=== PATIENT | male | born 1950 | race Caucasian/White ===

== ENCOUNTER 2018-03-24 10:16 | Inpatient (IN) ==
[2018-03-24 13:54] LABS: Baso % (Auto) 0.7 % (0.0-2.0); Eos % (Auto) 0.5 % (0.0-4.0); Hematocrit 43.9 % (39.0-51.0); Hemoglobin 14.9 gm/dL (13.0-17.0); Lymph # (Auto) 0.8 th/mm3 (1.0-4.8); Lymph % (Auto) 10.6 % (9.0-44.0); Mean Corpuscular HGB Conc 33.9 % (32.0-36.0); Mean Corpuscular Hemoglobin 31.4 pg (27.0-34.0); Mean Corpuscular Volume 92.7 fL (80.0-100.0); Mean Platelet Volume 8.2 fL (7.0-11.0); Mono # (Auto) 0.5 th/mm3 (0.0-0.9); Mono % (Auto) 7.3 % (0.0-8.0); Neut # (Auto) 5.7 th/mm3 (1.8-7.7); Neut % (Auto) 80.9 % (16.0-70.0); Platelet Count 141 th/mm3 (150-450); Red Blood Count 4.73 mil/mm3 (4.50-5.90); Red Cell Distribution Width 13.1 % (11.6-17.2); White Blood Count 7.1 th/mm3 (4.0-11.0)
--- NOTE | 2018-03-24 13:56 | ED ---
HPI General Chief complaint: Chest Pain Stated complaint: Cardiac Time Seen by Provider: 03/24/18 13:08 History of Present Illness HPI narrative: Patient is a 67-year-old male presents emergency department for evaluation of dizziness shortness of breath and chest discomfort. Patient states it started earlier this morning and felt a fog fall over his head like he was "going under anesthesia". He states he also noted some shortness of breath. Family states he looked pale when he sat up. He then stated that he was having some chest discomfort and left side of his chest rating down his left arm. He states currently he is feeling a little bit better. Did receive aspirin nitroglycerin prior to arrival. Symptoms mild, associated signs symptoms context and duration as above. Related Data Home Medications Medication Instructions Recorded Confirmed diclofenac sodium 100 mg PO DAILY 03/24/18 03/24/18 Allergies Allergy/AdvReac Type Severity Reaction Status Date / Time No Known Allergies Allergy Verified 03/24/18 13:24 Review of Systems ROS: all other systems reviewed are negative PMFSH Social History Social History Substance History: No History of Abuse Second Hand Smoke Exposure: No Smoking Status: Never smoker How Often Do You Have a Drink Containing Alcohol: Never Recent Travel in [facility] within the Last 8 Weeks: No Recent Out of Country Travel within the Last 8 Weeks: No Immunization History Tetanus Immunization: <5 Years Exam Narrative Exam Narrative: GENERAL: Well-developed well-nourished, no obvious distress, quite pleasant. SKIN: Focused skin assessment warm/dry. HEAD: Atraumatic. Normocephalic. EYES: Pupils equal and round. No scleral icterus. No injection or drainage. ENT: No nasal bleeding or discharge. Mucous membranes pink and moist. NECK: Trachea midline. No JVD. CARDIOVASCULAR: Regular rate and rhythm. No murmur appreciated. 2+ bilateral equal pulses in all 4 extremities per RESPIRATORY: No accessory muscle use. Clear to auscultation. Breath sounds equal bilaterally. GASTROINTESTINAL: Abdomen soft, non-tender, nondistended. Hepatic and splenic margins not palpable. MUSCULOSKELETAL: No obvious deformities. No clubbing. No cyanosis. Patient has a fair amount of edema of the right lower extremity, small bruise. Homans sign is actually negative. There is also some minimal mild swelling of the left side. Certainly greater on the right than the left. NEUROLOGICAL: Awake and alert. No obvious cranial nerve deficits. Motor grossly within normal limits. Normal speech. PSYCHIATRIC: Appropriate mood and affect; insight and judgment normal. Course Initial Documented Vital Signs Temperature 98.0 F 03/24/18 10:23 Pulse Rate 80 03/24/18 10:23 Respiratory Rate 16 03/24/18 10:23 Blood Pressure 101/63 03/24/18 10:23 Pulse Oximetry 95 03/24/18 10:23 Last Documented Vital Signs Temperature 98.0 F 03/24/18 10:23 Pulse Rate 81 03/24/18 18:49 Respiratory Rate 24 03/24/18 18:49 Blood Pressure 134/84 03/24/18 18:51 Pulse Oximetry 96 03/24/18 18:49 Critical Care Time Critical Care Time: Yes Total Critical Care Time: 65 Attestation: Aggregate critical care time was 65 minutes. Time to perform other separately billable procedures was not included in the critical care time. My time did not include minutes spent treating any other patients simultaneously or on activities that did not directly contribute to the patient's treatment. The services I provided to this patient were to treat and/or prevent clinically significant deterioration that could result in: , disability, organ failure I provided critical care services requiring my management, as noted below: Chart data review, documentation time, medication orders and management, vital sign assessments/reviewing monitor data, ordering and reviewing lab tests, ordering and interpreting/reviewing x-rays and diagnostic studies, care of the patient and discussion of the patient with the admitting physicians. Medical Decision Making MDM Narrative Medical decision making narrative: Patient 67-year-old male I have a high clinical suspicion for pulmonary embolism and DVT in this patient, testing has confirmed, he does have some evidence for right heart strain is indicated by his troponin mildly elevated. A stat echo has been ordered and is not yet read. Patient appears comfortable is saturating well on room air. Working in conjunction with Dr. Janny Escalante ICU, Dr. Levi Ramos interventional radiology, Dr. Al Smith diagnostic radiology think the safest intervention at this point would be for central line catheterization and probable TPA localized drip. I think that this is the most reasonable intervention for this patient at this time as I think he has a higher mortality with heparin alone and I think his best likelihood for recovery is with TPA. Dr. Janny Escalante is in agreement. She is at the bedside interviewing the patient to see if there is any exclusion criteria. This was discussed with Dr. Ramos who is preparing the intervenitonal radiology suite. Medical Screen Exam Complete: Yes Emergency Medical Condition: Yes Lab Data Result diagrams: 03/24/18 13:35 03/24/18 13:35 Lab Results 03/24/18 03/24/18 03/24/18 Range/Units 13:35 13:35 13:35 WBC 7.1 (4.0-11.0) th/mm3 RBC 4.73 (4.50-5.90) mil/mm3 Hgb 14.9 (13.0-17.0) gm/dL Hct 43.9 (39.0-51.0) % MCV 92.7 (80.0-100.0) fL MCH 31.4 (27.0-34.0) pg MCHC 33.9 (32.0-36.0) % RDW 13.1 (11.6-17.2) % Plt Count 141 L (150-450) th/mm3 MPV 8.2 (7.0-11.0) fL Neut % (Auto) 80.9 H (16.0-70.0) % Lymph % (Auto) 10.6 (9.0-44.0) % Finney % (Auto) 7.3 (0.0-8.0) % Eos % (Auto) 0.5 (0.0-4.0) % Baso % (Auto) 0.7 (0.0-2.0) % Neut # (Auto) 5.7 (1.8-7.7) th/mm3 Lymph # (Auto) 0.8 L (1.0-4.8) th/mm3 Finney # (Auto) 0.5 (0.0-0.9) th/mm3 Eos # (Auto) 0.0 (0.0-0.4) th/mm3 Baso # (Auto) 0.0 (0.0-0.2) th/mm3 WBC Differential . Differential Comment Auto diff final PT 11.0 (9.8-11.6) sec INR 1.1 Ratio APTT 29.5 (23.4-31.7) sec Sodium 141 (136-145) meq/L Potassium 4.1 (3.5-5.1) meq/L Chloride 106 (98-107) meq/L Carbon Dioxide 26.4 (21.0-32.0) meq/L Anion Gap 9 (5-15) meq/L BUN 18 (7-18) mg/dL Creatinine 1.23 (0.60-1.30) mg/dL Estimated GFR 59 L (>89) mL/min Random Glucose 101 (74-106) mg/dL Calcium 8.5 (8.5-10.1) mg/dL Total Bilirubin 0.8 (0.2-1.0) mg/dL AST 19 (15-37) U/L ALT 26 (12-78) U/L Alkaline Phosphatase 60 (45-117) U/L Troponin I 0.28 H (0.02-0.05) ng/mL B-Natriuretic Peptide (0-100) pg/mL Total Protein 7.8 (6.4-8.2) g/dL Albumin 3.7 (3.4-5.0) g/dL Blood Type Antibody Screen 03/24/18 03/24/18 Range/Units 13:35 16:40 WBC (4.0-11.0) th/mm3 RBC (4.50-5.90) mil/mm3 Hgb (13.0-17.0) gm/dL Hct (39.0-51.0) % MCV (80.0-100.0) fL MCH (27.0-34.0) pg MCHC (32.0-36.0) % RDW (11.6-17.2) % Plt Count (150-450) th/mm3 MPV (7.0-11.0) fL Neut % (Auto) (16.0-70.0) % Lymph % (Auto) (9.0-44.0) % Finney % (Auto) (0.0-8.0) % Eos % (Auto) (0.0-4.0) % Baso % (Auto) (0.0-2.0) % Neut # (Auto) (1.8-7.7) th/mm3 Lymph # (Auto) (1.0-4.8) th/mm3 Finney # (Auto) (0.0-0.9) th/mm3 Eos # (Auto) (0.0-0.4) th/mm3 Baso # (Auto) (0.0-0.2) th/mm3 WBC Differential Differential Comment PT (9.8-11.6) sec INR Ratio APTT (23.4-31.7) sec Sodium (136-145) meq/L Potassium (3.5-5.1) meq/L Chloride (98-107) meq/L Carbon Dioxide (21.0-32.0) meq/L Anion Gap (5-15) meq/L BUN (7-18) mg/dL Creatinine (0.60-1.30) mg/dL Estimated GFR (>89) mL/min Random Glucose (74-106) mg/dL Calcium (8.5-10.1) mg/dL Total Bilirubin (0.2-1.0) mg/dL AST (15-37) U/L ALT (12-78) U/L Alkaline Phosphatase (45-117) U/L Troponin I (0.02-0.05) ng/mL B-Natriuretic Peptide 26 (0-100) pg/mL Total Protein (6.4-8.2) g/dL Albumin (3.4-5.0) g/dL Blood Type AB Negative Antibody Screen Negative Imaging Data Radiologist's impression: Chest CTA 03/24/18 13:24 CONCLUSION: 1. Large embolus occluding left main pulmonary vein. Findings were discussed with Dr. Edgar today's date. Chest X-Ray 03/24/18 13:24 CONCLUSION: Mild compensated cardiomegaly without infiltrate or failure. Venous Doppler Study 03/24/18 13:24 CONCLUSION: 1. Deep venous thrombosis extending across the knee to mid thigh. Discharge Plan Discharge Disposition Patient Disposition: ED Admit(ED Internal Use Only) Discharge Order Discharge Orders: ED Use Only Admit Order (Routine); Ordered 03/24/18 Ordered By: Zackery Montanez Physicians Team ED Provider: Zackery Montanez Primary Care Provider: UNKNOWN, Attending Provider: Janny Escalante Other Providers: Kelsey Alfredo Status ED Status: Left Department Discharge Information Discharge Date/Time: 03/24/18 17:50
[2018-03-24 14:08] LABS: Activated Partial Thrombo Time 29.5 sec (23.4-31.7); INR 1.1 Ratio
[2018-03-24 14:14] LABS: Alanine Aminotransferase 26 U/L (12-78); Albumin 3.7 g/dL (3.4-5.0); Anion Gap 9 meq/L (5-15); Aspartate Aminotransferase 19 U/L (15-37); Blood Urea Nitrogen 18 mg/dL (7-18); Calcium 8.5 mg/dL (8.5-10.1); Carbon Dioxide 26.4 meq/L (21.0-32.0); Chloride 106 meq/L (98-107); Glomerular Filtration Rate 59 mL/min (>89); Glucose,Random 101 mg/dL (74-106); Potassium 4.1 meq/L (3.5-5.1); Sodium 141 meq/L (136-145)
[2018-03-24 14:18] LABS: Alkaline Phosphatase 60 U/L (45-117); Total Protein 7.8 g/dL (6.4-8.2); Troponin I 0.28 ng/mL (0.02-0.05)
[2018-03-24] MEDS ORDERED: Heparin 10,000 UNITS/10 ML Vial (for IV use) IV.PUSH STA (14:21)
[2018-03-24] MEDS ORDERED: Heparin Drip 25,000 UNIT/250 ML BAG IV.CONT PRN (14:21)
--- NOTE | 2018-03-24 14:33 | XR ---
EXAM DATE: 03/24/2018 2:00 PM EST AGE/SEX: 67 years / Male INDICATIONS: Chest pain. CLINICAL DATA: This is the patient's initial encounter. Patient reports that signs and symptoms have been present for 1 day and indicates a pain score of 10/10. MEDICAL/SURGICAL HISTORY: None. None. COMPARISON: No prior exams available for comparison. FINDINGS: A single AP view of the chest demonstrates the lungs to be symmetrically aerated without evidence of mass, infiltrate or effusion. Mild cardiomegaly. Osseous structures are intact. CONCLUSION: Mild compensated cardiomegaly without infiltrate or failure. Electronically signed by: Eliecer Smith MD Board Certified Radiologist 03/24/2018 2:32 PM EST
--- NOTE | 2018-03-24 14:41 | US ---
EXAM DATE: 03/24/2018 2:26 PM EST AGE/SEX: 67 years / Male INDICATIONS: Right leg swelling. CLINICAL DATA: This is the patient's initial encounter. Patient reports that signs and symptoms have been present for 4 - 6 days and indicates a pain score of 0/10. MEDICAL/SURGICAL HISTORY: Diabetes. Hepatitis C. Congestive heart failure. Hypertension. Pa cemburt. Gastric bypass. COMPARISON: No prior exams available for comparison. TECHNIQUE: Venous ultrasound of both lower extremities was performed from the inguinal ligament to t he proximal calf. Real-time, color Doppler and spectral tracing, compression and augmentation techni ques were used. FINDINGS: There is occlusive and partially occlusive thrombus extending from just below the poplit eal vein through the popliteal vein into the common femoral vein. Clot stops in mid thigh CONCLUSION: 1. Deep venous thrombosis extending across the knee to mid thigh. Electronically signed by: Eliecer Smith MD Board Certified Radiologist 03/24/2018 2:40 PM EST
--- NOTE | 2018-03-24 16:03 | CT ---
EXAM DATE: 03/24/2018 3:53 PM EST AGE/SEX: 67 years / Male INDICATIONS: Dizziness, shortness of breath and chest discomfort since this morning. CLINICAL DATA: This is the patient's initial encounter. Patient reports that signs and symptoms have been present for 1 day and indicates a pain score of 2/10. MEDICAL/SURGICAL HISTORY: Congestive heart failure. Diabetes. Hypertension. Hep C. Pacemaker. Gastric bypass. RADIATION DOSE: 19.69 CTDI (mGy) COMPARISON: No prior exams available for comparison. TECHNIQUE: Volumetric scanning was performed using a multi-row detector CT scanner during bolus infu saúl of 73 ml Omnipaque 350 (iohexol) nonionic water-soluble contrast as a single exam dose. The eddie a was post processed with a variety of visualization algorithms including full volume maximum intensi ty projection and sliding thin slab reformation. Using automated exposure control and adjustment of t he mA and/or kV according to patient size, radiation dose was kept as low as reasonably achievable to obtain optimal diagnostic quality images. DICOM format image data is available electronically for r eview and comparison. FINDINGS: Pulmonary Arteries: There is a large embolus occluding the left main pulmonary vein. Smaller emboli are present on the right. Lungs are clear without pleural effusion There is no axillary or mediastinal adenopathy. Abdominal contents unremarkable. CONCLUSION: 1. Large embolus occluding left main pulmonary vein. Findings were discussed with Dr. Edgar today's date. Electronically signed by: Eliecer Smith MD Board Certified Radiologist 03/24/2018 4:01 PM EST
--- NOTE | 2018-03-24 16:48 | ECHRPT ---
Indication: CONCLUSIONS Normal left ventricular size. Wall thickness is normal. The left ventricular systolic function is normal with an estimated ejection fraction in the range of 55-60%. The right ventricle is mildly dilated. The right ventricular systoilc function is mildly decreased. Trace aortic valve regurgitation. There is trace tricuspid valve regurgitation. The estimated pulmonary arterial pressure is 19 mmHg. The inferior vena cava was not well visualized. BP: / HR: Rhythm: Sinus MEASUREMENTS (Male / Female) Normal Values Technical Quality:Fair 2D ECHO LV Diastolic Diameter PLAX 3.9 cm 4.2 - 5.9 / 3.9 - 5.3 cm LV Systolic Diameter PLAX 3.0 cm IVS Diastolic Thickness 1.1 cm 0.6 - 1.0 / 0.6 - 0.9 cm LVPW Diastolic Thickness 1.0 cm 0.6 - 1.0 / 0.6 - 0.9 cm LV Relative Wall Thickness 0.5 RV Internal Dim ED PLAX 3.9 cm LVOT Diameter 1.8 cm Aortic Root Diameter 3.3 cm LA Systolic Diameter LX 3.1 cm 3.0 - 4.0 / 2.7 - 3.8 cm M-MODE AV Cusp Separation MM 2.1 cm DOPPLER AV Peak Velocity 165.0 cm/s AV Peak Gradient 10.9 mmHg AV Mean Gradient 6.0 mmHg AV Velocity Time Integral 34.2 cm LVOT Peak Velocity 108.0 cm/s LVOT Peak Gradient 4.7 mmHg LVOT Velocity Time Integral 19.7 cm AV Area Cont Eq vti 1.5 cm AV Area Cont Eq pk 1.7 cm Mitral E Point Velocity 73.5 cm/s Mitral A Point Velocity 114.0 cm/s Mitral E to A Ratio 0.6 LV E' Lateral Velocity 11.8 cm/s Mitral E to LV E' Lateral Ratio 6.2 LV E' Septal Velocity 6.9 cm/s Mitral E to LV E' Septal Ratio 10.6 TR Peak Velocity 153.0 cm/s TR Peak Gradient 9.4 mmHg Right Atrial Pressure 10.0 mmHg Pulmonary Artery Systolic Pressu 19.4 mmHg Right Ventricular Systolic Press 19.4 mmHg PV Peak Velocity 143.0 cm/s PV Peak Gradient 8.2 mmHg FINDINGS LEFT VENTRICLE Normal left ventricular size. Wall thickness is normal. The left ventricular systolic function is normal with an estimated ejection fraction in the range of 55-60%. RIGHT VENTRICLE The right ventricle is mildly dilated. The right ventricular systoilc function is mildly decreased. LEFT ATRIUM The left atrial size is normal. RIGHT ATRIUM The right atrial size is normal. ATRIAL SEPTUM Normal atrial septal thickness without atrial level shunting by limited color doppler interrogation. AORTA The aortic root and proximal ascending aorta are normal in size on limited imaging. MITRAL VALVE Structurally normal mitral valve. No mitral valve stenosis or regurgitation. AORTIC VALVE Trace aortic valve regurgitation. TRICUSPID VALVE There is trace tricuspid valve regurgitation. The estimated pulmonary arterial pressure is 19 mmHg. PULMONARY VALVE No pulmonary valve regurgitation or stenosis. VESSELS The inferior vena cava was not well visualized. PERICARDIUM No pericardial effusion. Jose Mcdowell MD (Electronically Signed) Final Date:24 March 2018 16:47
[2018-03-24] MEDS ORDERED: Potassium Phosphate 500 MG Soluble Tablet PO PRN ×2 (16:53)
[2018-03-24] MEDS ORDERED: Bisacodyl 10 MG Supp RECTAL PRN (16:53)
[2018-03-24] MEDS ORDERED: Magnesium Sulfate Inj 2 GM in Sodium Chlor 0.9% Inj 96 ML IV.SIG PRN (16:53)
[2018-03-24] MEDS ORDERED: Sodium Phosphate Inj 30 MMOL in Sodium Chlor 0.9% Inj 250 ML IV.SIG PRN (16:53)
[2018-03-24] MEDS ORDERED: Potassium Chloride Liq 20 MEQ/15 ML UDC PO PRN ×2 (16:53)
[2018-03-24] MEDS ORDERED: Acetaminophen 325 MG Tablet PO PRN (16:53)
[2018-03-24] MEDS ORDERED: Potassium Chlor 20 mEq Premix 20 MEQ/100 ML PIGGYBACK IV.SIG PRN ×2 (16:53)
[2018-03-24] MEDS ORDERED: Potassium Chlor 40 mEq Premix 40 MEQ/100 ML PIGGYBACK IV.SIG PRN ×2 (16:53)
[2018-03-24] MEDS ORDERED: Potassium Phosphate Inj 30 MMOL in Sodium Chlor 0.9% Inj 250 ML IV.SIG PRN (16:53)
[2018-03-24] MEDS ORDERED: Magnesium Sulfate Inj 4 GM in Sodium Chlor 0.9% Inj 92 ML IV.SIG PRN (16:53)
[2018-03-24] MEDS ORDERED: Magnesium Oxide 400 MG Tablet PO PRN (16:53)
[2018-03-24] MEDS ORDERED: fentaNYL Citrate Inj 250 MCG/5 ML Ampul ONE (17:20)
--- NOTE | 2018-03-24 17:36 | P.HPCC ---
History of Present Illness Service: ICU Primary Care Physician: UNKNOWN Chief Complaint: Shortness of breath History of Present Illness: This is a 67-year-old male that presented to [facility] with complaints of shortness of breath and chest pain on inspiration. The patient also noted that his right leg have been swollen and had been achy in the recent past. The patient stated that he had been traveling and had taken a flight on March 08 from [place] to [place] and he started having pain in his right leg . On March 21, the patient then stated that he drove from [place] to [place] for approximately 8 hours. Day he woke up and has shortness of breath and continued pain in his right. CT angios was performed and it revealed a large embolus in the left pulmonary vein and small emboli in the right a stat venous Doppler ultrasound showed a DVT extending across the knee to the mid thigh in the right leg. She is past medical history is significant for hypertension ,diabetes, and hepatitis C. The patient also has a hearing deficit. Emergency physician Dr. Montanez contacted Dr. Ramos Invasive Radiology who reviewed the case and discussed the possibility of doing catheter directed TPA. The patient was placed on heparin 1800 units/hour. Patient was noted to have a slight elevation in troponin at 0.28. Stat ECHO was obtained and pending. Critical Care medicine was then consulted. Upon my arrival , the patient was hemodynamically stable on 2 L/min nasal cannula O2 saturation 99%. The patient denied any chest pain and had a normal blood pressure. Stat echo was obtained and is still pending. Review of exclusion criteria was discussed with the patient, of which he denied. The patient met inclusion criteria for TPA. I discussed with the patient options of thrombolysis to include catheter directed by invasive radiology, IV infusion of TPA as well as continued heparin infusion. Discussion with Dr. Montanez and patient decision made to undergo catheter directed thrombolysis. All questions were answered. Risks and benefits for catheter directed TPA thrombolysis to be discussed per Dr. Ramos with patient and family. - Diagnosis (1) Pulmonary embolus Inpatient Certification: I certify that the inpatient services were ordered in accordance with Medicare regulations governing the order. This includes certification that hospital inpatient services are reasonable and necessary and in the case of services not specified as inpatient-only under 42 CFR 419.22(n), that they are appropriately provided as inpatient services in accordance to with the 2-midnight benchmark under 43 CFR 412.3(e) Estimated Total Length of Stay (Days): 5 Plans for Post Hospital Care: Not yet determined Review of Systems All other systems reviewed negative except as stated in HPI Musculoskeletal: Reports other (Right leg pain) PMF - History History Provided By: Patient, Institutional Cook / EMT - Medical History Medical History: Medical History (Last Updated 03/25/18 @ 13:43 by Janny Escalante MD) Patient denies medical problems (Acute) - Surgical History Surgical History: Surgical History (Last Reviewed 03/24/18 @ 17:23 by Janny Escalante MD) H/O gastric bypass - Tobacco History Second Hand Smoke Exposure: No Smoking Status: Never smoker - Alcohol History How Often Do You Have a Drink Containing Alcohol: Never - Substance Use History Substance History: No History of Abuse - Travel History Recent Travel in the [place] Within the Last 8 Weeks: No Recent Travel Out of the Country Within the Last 8 Weeks: No - Immunization History Tetanus Immunization: <5 Years Medications and Allergies Active Medications: Active Medications Acetaminophen (Tylenol) 650 mg PO Q6H PRN PRN Reason: PAIN 1-10 AND/OR FEVER >101F Hydrocodone Bitart/Acetaminophen ([place] 5/325) 1 tab PO Q4H PRN PRN Reason: PAIN SCALE 1 TO 5 Al Hydroxide/Mg Hydroxide (Milk Of Magnesia Liq) 30 ml PO Q12H PRN PRN Reason: Mild Constipation Albuterol (Duoneb Neb (Prn)) 1 ampul NEB Q2HR NEB PRN PRN Reason: WHEEZING Albuterol (Duoneb Neb (Prn)) 1 ampul NEB Q6HR NEB ABBIE Bisacodyl (Dulcolax Supp) 10 mg RECTAL DAILY PRN PRN Reason: SEVERE CONSITIPATION Chlorhexidine Gluconate (Chlorhexidine 2% Cloth) 3 pack TOPICAL DAILY@0400 ABBIE Stop: 03/30/18 03:59 Chlorhexidine Gluconate (Chlorhexidine 2% Cloth) 3 pack TOPICAL DAILY@0400 PRN PRN Reason: Extra cloth needed Stop: 03/30/18 03:59 Famotidine (Pepcid Pf Inj) 20 mg IV.PUSH Q12HR ABBIE Heparin Sodium (Porcine) (Heparin Inj) 2,500 units IV.PUSH UNSCH PRN PRN Reason: aPTT 25-39 Heparin Sodium (Porcine) (Heparin Inj) 5,000 units IV.PUSH UNSCH PRN PRN Reason: aPTT < 25 Heparin Sodium/Dextrose (Heparin/D5w 25,000 U/250 Ml) 25,000 unit in 250 mls @ 0 mls/hr IV.CONT TITRATE PRN; Protocol PRN Reason: Per Protocol Last Admin: 03/24/18 15:22 Dose: 1,800 units/hr, 18 mls/hr Magnesium Sulfate 4 gm/ Sodium (Chloride) 100 mls @ 50 mls/hr IV.SIG UNSCH PRN PRN Reason: For Magnesium 0.9 - 1.1 mg/dL Magnesium Sulfate 2 gm/ Sodium (Chloride) 100 mls @ 50 mls/hr IV.SIG UNSCH PRN PRN Reason: For Magnesium 1.2 - 1.6 mg/dL Potassium Chloride (Kcl 40 Meq Premix Inj) 40 meq in 100 mls @ 25 mls/hr IV.SIG Q2H PRN PRN Reason: For Potassium 2.8 - 3.2 mEq/L Potassium Chloride (Kcl 20 Meq Premix Inj) 20 meq in 100 mls @ 50 mls/hr IV.SIG Q2H PRN PRN Reason: For Potassium 3.3 - 3.5 mEq/L Potassium Chloride (Kcl 40 Meq Premix Inj) 40 meq in 100 mls @ 25 mls/hr IV.SIG UNSCH PRN PRN Reason: For Potassium 3.3 - 3.5 mEq/L Potassium Chloride (Kcl 20 Meq Premix Inj) 20 meq in 100 mls @ 50 mls/hr IV.SIG Q2H PRN PRN Reason: For Potassium 2.8 - 3.2 mEq/L Sodium Phosphate 30 mmol/ (Sodium Chloride) 260 mls @ 42 mls/hr IV.SIG UNSCH PRN PRN Reason: For Phosphorus < 2.5 mg/dL Potassium Phosphate 30 mmol/ (Sodium Chloride) 260 mls @ 42 mls/hr IV.SIG UNSCH PRN PRN Reason: SEE LABEL COMMENTS Lactulose (Lactulose Liq) 30 ml PO DAILY PRN PRN Reason: SEVERE CONSITIPATION Magnesium Oxide (Mag-Ox) 800 mg PO UNSCH PRN PRN Reason: For Magnesium 1.2 - 1.6 mg/dL Ondansetron HCl (Zofran Inj) 4 mg IV.PUSH Q6H PRN PRN Reason: NAUSEA OR VOMITING Potassium Chloride (Kcl Liq) 40 meq PO UNSCH PRN PRN Reason: Potassium level 3.3-3.5 mEq/L Potassium Chloride (Kcl Liq) 40 meq PO UNSCH PRN PRN Reason: POTASSIUM LESS THAN 3.5 Potassium Phosphate (K-Phos Original) 2,000 mg PO Q4H PRN PRN Reason: Phosphorus Less Than 2.5 mg/dL Potassium Phosphate (K-Phos Original) 2,000 mg PO UNSCH PRN PRN Reason: SEE LABEL COMMENTS Senna/Docusate Sodium (Susan-Colace) 1 tab PO BID ABBIE Sennosides (Senokot) 17.2 mg PO Q12H PRN PRN Reason: Moderate Constipation Sodium Chloride (Ns Flush) 2 ml IV.FLUSH UNSCH PRN PRN Reason: FLUSH AFTER USING IV ACCESS Sodium Chloride (Ns Flush) 2 ml IV.FLUSH BID ABBIE Sodium Chloride (Ns Flush) 2 ml IV.FLUSH PRN PRN PRN Reason: FLUSH AFTER USING IV ACCESS Allergies Allergy/AdvReac Type Severity Reaction Status Date / Time No Known Allergies Allergy Verified 03/24/18 13:24 Home Medications Medication Instructions Recorded Confirmed Type diclofenac sodium 100 mg PO DAILY 03/24/18 03/24/18 History Results - Labs CBC & Chem 7: 03/25/18 11:00 03/25/18 05:00 Labs: Short CBC 03/24/18 Range/Units 13:35 WBC 7.1 (4.0-11.0) th/mm3 Hgb 14.9 (13.0-17.0) gm/dL Hct 43.9 (39.0-51.0) % Plt Count 141 L (150-450) th/mm3 [facility] 03/24/18 13:35 Sodium 141 Potassium 4.1 Chloride 106 Carbon Dioxide 26.4 BUN 18 Creatinine 1.23 Calcium 8.5 Cardiac Enzymes 03/24/18 Range/Units 13:35 Troponin I 0.28 H (0.02-0.05) ng/mL Liver Function 03/24/18 Range/Units 13:35 Total Bilirubin 0.8 (0.2-1.0) mg/dL AST 19 (15-37) U/L ALT 26 (12-78) U/L Alkaline Phosphatase 60 (45-117) U/L Albumin 3.7 (3.4-5.0) g/dL - Imaging Impressions Chest CTA 03/24/18 13:24 CONCLUSION: 1. Large embolus occluding left main pulmonary vein. Findings were discussed with Dr. Edgar today's date. Chest X-Ray 03/24/18 13:24 CONCLUSION: Mild compensated cardiomegaly without infiltrate or failure. Venous Doppler Study 03/24/18 13:24 CONCLUSION: 1. Deep venous thrombosis extending across the knee to mid thigh. Exam Vital signs: Vital Signs 03/24/18 10:23 03/24/18 13:27 03/24/18 16:47 Temperature 98.0 F Pulse Rate 80 70 87 Respiratory Rate 16 18 18 Blood Pressure 101/63 150/91 H 130/76 Pulse Oximetry 95 95 95 Intake & Output 03/23/18 03/24/18 03/24/18 18:59 06:59 18:59 Weight 98.43 kg - Constitutional mild distress, obese - Routine HEENT Exam Head: Present: normocephalic, atraumatic Eye: Present: EOMI, PERRL, normal accommodation, conjunctivae pink ENT: Present: mucous membranes moist, oropharynx clear, dentition normal, nares patent, external ear normal - Routine Neck Exam Present: supple, full ROM, trachea midline - Routine Respiratory Exam Present: CTA bilaterally - Routine Cardiovascular Exam Present: RRR, S1, S2 - Routine Abdominal Exam Present: soft, normoactive bowel sounds - Routine Extremities Exam Present: full ROM - Routine Skin Exam Present: intact - Routine Neurological Exam Present: alert, oriented X3, CN II-XII intact, sensory deficit (decreased hearing), normal reflexes, normal tone, vision grossly intact, hearing grossly intact Caprini VTE Risk Assessment Caprini VTE Risk Assessment: Moderate/High Risk (score >= 2) VTE Pharmacological Exception Reason: Documented Caprini Risk Assessment Model: Point Value = 1 Point Value = 2 Point Value = 3 Point Value = 5 Age 41-60 Minor surgery BMI > 25 kg/m2 Swollen legs Varicose veins or History of unexplained or recurrent spontaneous Oral contraceptives or hormone replacement Sepsis (< 1 month) Serious lung disease, including pneumonia (< 1 month) Abnormal pulmonary function Acute myocardial infarction Congestive heart failure (< 1 month) History of inflammatory bowel disease Medical patient at bed rest Age 61-74 Arthroscopic surgery Major open surgery (> 45 min) Laparoscopic surgery (> 45 min) Malignancy Confined to bed (> 72 hours) Immobilizing plaster cast Central venous access Age >= 75 History of VTE Family history of VTE Factor V Leiden Prothrombin [id number] Lupus anticoagulant Anticardiolipin antibodies Elevated serum homocysteine Heparin-induced thrombocytopenia Other congenital or acquired thrombophilia Stroke (< 1 month) Elective arthroplasty Hip, pelvis, or leg fracture Acute spinal cord injury (< 1 month) Prophylaxis Regimen: Total Risk Factor Score Risk Level Prophylaxis Regimen 0-1 Low Early ambulation 2 Moderate Order ONE of the following: *Sequential Compression Device (SCD) *Heparin 5000 units SQ BID 3-4 Higher Order ONE of the following medications: *Heparin 5000 units SQ TID *Enoxaparin/Lovenox 40 mg SQ daily (WT < 150 kg, CrCl > 30 mL/min) *Enoxaparin/Lovenox 30 mg SQ daily (WT < 150 kg, CrCl > 10-29 mL/min) *Enoxaparin/Lovenox 30 mg SQ BID (WT < 150 kg, CrCl > 30 mL/min) AND/OR *Sequential Compression Device (SCD) 5 or more Highest Order ONE of the following medications: *Heparin 5000 units SQ TID (Preferred with Epidurals) *Enoxaparin/Lovenox 40 mg SQ daily (WT < 150 kg, CrCl > 30 mL/min) *Enoxaparin/Lovenox 30 mg SQ daily (WT < 150 kg, CrCl > 10-29 mL/min) *Enoxaparin/Lovenox 30 mg SQ BID (WT < 150 kg, CrCl > 30 mL/min) AND *Sequential Compression Device (SCD) Assessment and Plan - Problem List (1) Pulmonary embolus Code(s): I26.99 - Other pulmonary embolism without acute cor pulmonale Status : Acute - Assessment and Plan Plan: Assessment This is a 67-year-old male with a large left pulmonary vein embolus, undergoing catheter directed TPA administration. Patient is at risk for cardiac and pulmonary deterioration. Admit to ICU. Plan by systems: Neurologic: Pain Hearing deficit Neuro checks per ICU protocol Acetaminophen 650 mg every 6 hours as needed for temp greater than 101 Oxycodone 5/325 for pain scale 1 through 10. Patient complaining of pleuritic chest pain on inspiration Respiratory: Maintain O2 saturation greater than 92%. Patient currently on 2 L nasal cannula O2 sat 97% Duo nebs every 6 hours scheduled every 2 hours as needed CTA Pulm-large embolus left main pulmonary vein Plan catheter directed TPA thrombolysis per invasive radiology Management of TPA per invasive radiology Consult hematology oncology Cardiovascular: Cardiomegaly Follow-up echo result Follow-up troponin, initial troponin 0 0.28 Maintain map greater than 65mmHG Renal: No Harding indicated at this time -- Strict I/Os FEN/GI: Begin regular diet Zofran for nausea Famotidine GI prophylaxis Bowel regimen Heme/ID: Consult Heme-Onc No indications for cultures at this time All lab draws to be obtained from central line no needle sticks during infusion TPA Monitor CBC Endocrine: Glucose monitoring per ICU protocol -- SSI Prophylaxis: GI Prophylaxis Famotidine DVT Prophylaxis -- SCDs Lines: Peripheral IVs x2. Central line placement and invasive radiology for TPA administration Dispo: My billing statement This patient remains critically ill with one or more organ systems which are or may become a threat to life. I have spent in excess of 45 minutes discontinuously in the care and management of this patient. This time is exclusive of procedures, and includes, but is not limited to, evaluation of the patient, review of the medical record, discussions with family, consultants, nursing staff, or respiratory therapy, and documentation in the medical record. Code Status: Full Discussed Condition With: Dr. Montanez, patient, patient's family, and BOAT DESIGNER at bedside (1) Pulmonary embolus Qualifiers: Chronicity: acute
[2018-03-24] MEDS ORDERED: Cathflo Activase Inj 2 MG Vial I-CATHETER ONE (18:03)
--- NOTE | 2018-03-24 18:16 | P.RAD ---
Post Procedure Progress Note - Pre Procedure Diagnosis (1) Pulmonary embolus - Post Procedure Diagnosis (1) Pulmonary embolus - Procedure Information Supervising Radiologist: Levi Ramos MD - Plan of Activity See PACS Report for procedural detail/treatment. Vascular - Arterial Procedure left Thoracic Procedure: Angiogram, Thrombolysis - Additional Information Findings: Massive PE on left. Traversed with wire to facilitate placement of a 10cm infusion catheter
[2018-03-24] MEDS: Senna/Docusate Sodium 8.6/50 MG Tablet PO SCH (21:06)
[2018-03-24] MEDS ORDERED: Heparin 10,000 UNITS/10 ML Vial (for IV use) IV.PUSH PRN ×2 (21:09→21:10)
[2018-03-24] MEDS ORDERED: Heparin/NS PF Inj 500 ML I-CATHETER PRN (22:24)
[2018-03-24] MEDS ORDERED: Heparin Drip 25,000 UNIT/250 ML BAG IV.CONT SCH (22:30)
[2018-03-24] MEDS: Famotidine PF Inj 20 MG/2 ML Vial IV.PUSH SCH (23:33)
[2018-03-24 23:34] LABS: Hematocrit 41.2 % (39.0-51.0); Mean Corpuscular HGB Conc 34.1 % (32.0-36.0); Mean Corpuscular Hemoglobin 30.8 pg (27.0-34.0); Mean Corpuscular Volume 90.2 fL (80.0-100.0); Mean Platelet Volume 8.4 fL (7.0-11.0); Platelet Count 128 th/mm3 (150-450); Red Blood Count 4.56 mil/mm3 (4.50-5.90); Red Cell Distribution Width 12.6 % (11.6-17.2); White Blood Count 7.7 th/mm3 (4.0-11.0)
[2018-03-24] MEDS: Cathflo Activase Inj 10 MG in Sodium Chlor 0.9% Inj 500 ML I-CATHETER PRN (23:35)
[2018-03-24] MEDS: Heparin/NS PF Inj 500 ML I-CATHETER SCH (23:37)
[2018-03-24] MEDS: Sod Chloride 0.9% Inj 1,000 ML IV.SIG SCH (23:38)
[2018-03-25] MEDS ORDERED: Chlorhexidine Gluconate 2% 1 Pack (2 Cloths) TOPICAL PRN (04:00)
[2018-03-25] MEDS: Cathflo Activase Inj 10 MG in Sodium Chlor 0.9% Inj 500 ML I-CATHETER PRN (04:31)
[2018-03-25] MEDS: Chlorhexidine Gluconate 2% 1 Pack (2 Cloths) TOPICAL SCH (04:33)
[2018-03-25 05:22] LABS: Baso % (Auto) 0.6 % (0.0-2.0); Eos # (Auto) 0.1 th/mm3 (0.0-0.4); Eos % (Auto) 1.5 % (0.0-4.0); Hematocrit 39.6 % (39.0-51.0); Hemoglobin 13.5 gm/dL (13.0-17.0); Lymph # (Auto) 1.2 th/mm3 (1.0-4.8); Mean Corpuscular HGB Conc 34.1 % (32.0-36.0); Mean Corpuscular Hemoglobin 31.4 pg (27.0-34.0); Mean Platelet Volume 8.4 fL (7.0-11.0); Mono # (Auto) 0.6 th/mm3 (0.0-0.9); Mono % (Auto) 9.2 % (0.0-8.0); Neut # (Auto) 4.3 th/mm3 (1.8-7.7); Neut % (Auto) 69.7 % (16.0-70.0); Platelet Count 116 th/mm3 (150-450); Red Cell Distribution Width 12.5 % (11.6-17.2); White Blood Count 6.2 th/mm3 (4.0-11.0)
[2018-03-25 05:38] LABS: Activated Partial Thrombo Time 48.5 sec (23.4-31.7)
[2018-03-25 05:48] LABS: Magnesium 2.1 mg/dL (1.5-2.5); Phosphorus 3.1 mg/dL (2.5-4.9); Potassium 3.8 meq/L (3.5-5.1)
[2018-03-25] MEDS: Famotidine PF Inj 20 MG/2 ML Vial IV.PUSH SCH ×2 (08:16→20:44)
[2018-03-25] MEDS: Senna/Docusate Sodium 8.6/50 MG Tablet PO SCH ×2 (08:17→20:50)
--- NOTE | 2018-03-25 09:20 | MB ---
cc: Kelsey Alfredo MD DATE: 03/25/2018 CHIEF COMPLAINT: 1. Venous thromboembolism. 2. Pulmonary embolism. 3. Requirement of catheter-directed thrombolysis. HISTORY OF PRESENT ILLNESS: The patient is a 67-year-old gentleman on no home medications, who presented to our emergency room with acute onset of shortness of breath and chest pain. He also noted bilateral lower extremity swelling, right greater than left, that has been present over the past several months. He reports recent travel, including to [place], [place], and now to this area for the races. CT angio revealed large embolus in the left pulmonary vein and small emboli in the right. He was also found to have on venous duplex ultrasound a deep venous thrombosis extending across the knee to the mid thigh in the right leg. He underwent catheter-directed thrombolysis and interventional radiology team and critical care team are following closely. PAST MEDICAL HISTORY: Congestive heart failure, diabetes, hepatitis C, hypertension. SOCIAL HISTORY: The patient denies tobacco use. He reports that he drinks 3 beers per week. FAMILY HISTORY No family history of malignancy ROS: as above in HPI all others negative. HOSPITAL MEDICATIONS: Include famotidine, heparin, lactulose, Zofran, Senna. LABORATORY STUDIES: White blood cell count 6.2, hemoglobin 13.5, platelet count is 116,000 with a normal differential. Creatinine is 1.04. Total bilirubin is 0.8. AST, ALT, and alkaline phosphatase are within normal limits. PHYSICAL EXAMINATION: VITAL SIGNS: Temperature 99.8, pulse 67, respiratory rate 16, blood pressure 107/72, pulse oximetry 98% on room air. GENERAL: Overweight man, in no distress. HEENT: Head is normocephalic, atraumatic. Eyes with no scleral icterus. NECK: Supple. CARDIOVASCULAR: Regular rate and rhythm. No murmurs. RESPIRATORY: Clear to auscultation bilaterally. ABDOMEN: Protuberant, but soft, nontender. EXTREMITIES: Bilateral lower extremity swelling, right greater than left. ASSESSMENT AND PLAN: Massive pulmonary embolism. The patient reports a several-month history of bilateral lower extremity swelling, right greater than left. The chances are very high that he had this clot prior to initiation of travel. Travel is a minor transient risk factor for venous thromboembolism and uncertain if travel provoked his clot in this setting. In the outpatient setting, the patient will need to be on at the very minimum 6 months of anticoagulation. I would be inclined to leave the patient on indefinite anticoagulation due to fear of recurrent clot, which can cause severe morbidity and even mortality. I discussed blood thinner in the outpatient setting. Discussed warfarin versus Xarelto versus Eliquis. Discussed risks, benefits, side effects of all of them. Discussed side effects to include risk of bleeding. Discussed that there is a reversal agent for the DOAC medications. However, this is not yet widely available. Once the patient is cleared for discharge and ready for oral medication would switch to apixaban 5 mg by mouth twice daily. [place]. Currently due to massive pulmonary embolus, he is following closely with the interventional radiology team and the critical care team. Inpatient hematology service will continue to follow. MD SEBASTIÁN Fuller/orlando , 08:39 AM , 08:47 AM CLARICE
[2018-03-25] MEDS ORDERED: Thrombin Topical Soln 5,000 UNIT Vial TOPICAL ONE ×2 (10:16→16:17)
[2018-03-25 11:21] LABS: Baso % (Auto) 0.7 % (0.0-2.0); Eos # (Auto) 0.1 th/mm3 (0.0-0.4); Eos % (Auto) 1.6 % (0.0-4.0); Hematocrit 39.3 % (39.0-51.0); Hemoglobin 13.3 gm/dL (13.0-17.0); Lymph % (Auto) 16.5 % (9.0-44.0); Mean Corpuscular HGB Conc 33.8 % (32.0-36.0); Mean Corpuscular Hemoglobin 31.2 pg (27.0-34.0); Mean Corpuscular Volume 92.5 fL (80.0-100.0); Mean Platelet Volume 8.3 fL (7.0-11.0); Mono # (Auto) 0.6 th/mm3 (0.0-0.9); Mono % (Auto) 9.9 % (0.0-8.0); Neut # (Auto) 4.3 th/mm3 (1.8-7.7); Neut % (Auto) 71.3 % (16.0-70.0); Platelet Count 118 th/mm3 (150-450); Red Blood Count 4.25 mil/mm3 (4.50-5.90); Red Cell Distribution Width 12.4 % (11.6-17.2); White Blood Count 6.1 th/mm3 (4.0-11.0)
--- NOTE | 2018-03-25 12:52 | ECG ---
Date Performed: 03/24/2018 Time Performed: 10:43:27 PTAGE: 67 years EKG: Sinus rhythm NORMAL ECG INTERPRETATION BASED ON A DEFAULT AGE OF 40 YEARS NO PREVIOUS TRACING DOCTOR: Jayne Smith Interpretating Date/Time 03/25/2018 12:42:28
--- NOTE | 2018-03-25 16:47 | P.PNCC ---
Subjective Subjective Remarks/Hospital Course: Hospital Course: This is a 67-year-old male that presented to [facility] with complaints of shortness of breath and chest pain on inspiration. The patient also noted that his right leg have been swollen and had been achy in the recent past. The patient stated that he had been traveling and had taken a flight on March 08 from [place] to [place] and he started having pain in his right leg . On March 21, the patient then stated that he drove from [place] to [place] for approximately 8 hours. Day he woke up and has shortness of breath and continued pain in his right. CT angios was performed and it revealed a large embolus in the left pulmonary vein and small emboli in the right a stat venous Doppler ultrasound showed a DVT extending across the knee to the mid thigh in the right leg. She is past medical history is significant for hypertension ,diabetes, and hepatitis C. The patient also has a hearing deficit. Emergency physician Dr. Montanez contacted Dr. Ramos Invasive Radiology who reviewed the case and discussed the possibility of doing catheter directed TPA. The patient was placed on heparin 1800 units/hour. Patient was noted to have a slight elevation in troponin at 0.28. Stat ECHO was obtained and pending. Critical Care medicine was then consulted. Upon my arrival , the patient was hemodynamically stable on 2 L/min nasal cannula O2 saturation 99%. The patient denied any chest pain and had a normal blood pressure. Stat echo was obtained and is still pending. Review of exclusion criteria was discussed with the patient, of which he denied. The patient met inclusion criteria for TPA. I discussed with the patient options of thrombolysis to include catheter directed by invasive radiology, IV infusion of TPA as well as continued heparin infusion. Discussion with Dr. Montanez and patient decision made to undergo catheter directed thrombolysis. All questions were answered. Risks and benefits for catheter directed TPA thrombolysis to be discussed per Dr. Ramos with patient and family. Subjective: 03/25: doing well. denies new complaints. significant oozing from sheath site- IR has evaluated and re-dressed. to IR today for repeat angio and re- evaluation. Objective Vital Signs / I&O: Vital Signs 03/24/18 16:47 03/24/18 18:49 03/24/18 18:51 Temperature Pulse Rate 87 81 Respiratory Rate 18 24 Blood Pressure 130/76 134/84 Pulse Oximetry 95 96 02/11/19 18:52 03/24/18 19:00 03/24/18 19:30 Temperature Pulse Rate 84 79 83 Respiratory Rate 19 24 17 Blood Pressure 138/85 146/93 H Pulse Oximetry 98 96 03/24/18 20:00 03/24/18 20:27 03/24/18 20:30 Temperature 37.2 C Pulse Rate 77 78 81 Respiratory Rate 21 19 23 Blood Pressure 133/80 132/84 133/73 Pulse Oximetry 98 98 97 03/24/18 20:45 03/24/18 21:00 03/24/18 21:15 Temperature Pulse Rate 77 80 80 Respiratory Rate 23 21 23 Blood Pressure 130/82 131/81 141/85 H Pulse Oximetry 97 97 97 03/24/18 21:30 03/24/18 21:45 03/24/18 22:00 Temperature Pulse Rate 79 76 75 Respiratory Rate 23 21 21 Blood Pressure 131/85 132/90 131/90 Pulse Oximetry 94 L 96 96 03/24/18 22:15 03/24/18 22:30 03/24/18 22:47 Temperature Pulse Rate 75 77 79 Respiratory Rate 20 21 15 Blood Pressure 131/91 H 128/88 125/77 Pulse Oximetry 96 96 96 03/24/18 23:00 03/24/18 23:23 03/24/18 23:30 Temperature Pulse Rate 76 93 H 78 Respiratory Rate 18 13 21 Blood Pressure 131/80 136/85 143/75 H Pulse Oximetry 98 96 97 03/24/18 23:45 03/24/18 23:46 03/25/18 00:00 Temperature 37.3 C Pulse Rate 77 74 Respiratory Rate 14 20 Blood Pressure 135/93 H 134/86 Pulse Oximetry 97 97 96 03/25/18 00:15 03/25/18 00:30 03/25/18 00:45 Temperature Pulse Rate 77 76 74 Respiratory Rate 21 22 18 Blood Pressure 137/84 139/83 135/82 Pulse Oximetry 96 94 L 95 03/25/18 01:00 03/25/18 01:15 03/25/18 01:30 Temperature Pulse Rate 74 74 78 Respiratory Rate 22 22 14 Blood Pressure 134/81 133/85 138/76 Pulse Oximetry 96 95 90 L 03/25/18 01:45 03/25/18 02:00 03/25/18 02:15 Temperature Pulse Rate 76 74 74 Respiratory Rate 24 16 22 Blood Pressure 137/81 140/85 140/85 Pulse Oximetry 96 97 98 03/25/18 02:30 03/25/18 02:45 03/25/18 03:00 Temperature Pulse Rate 72 74 72 Respiratory Rate 21 22 24 Blood Pressure 142/86 H 134/85 127/82 Pulse Oximetry 98 97 97 03/25/18 03:38 03/25/18 04:00 03/25/18 04:01 Temperature 37.7 C H Pulse Rate 71 69 Respiratory Rate 12 22 Blood Pressure 127/82 125/81 Pulse Oximetry 95 97 98 03/25/18 04:30 03/25/18 05:00 03/25/18 05:30 Temperature Pulse Rate 69 69 75 Respiratory Rate 21 23 13 Blood Pressure 114/76 131/77 119/83 Pulse Oximetry 97 97 96 03/25/18 06:00 03/25/18 07:00 03/25/18 07:57 Temperature Pulse Rate 68 67 Respiratory Rate 20 16 Blood Pressure 114/66 107/72 Pulse Oximetry 96 96 98 03/25/18 08:00 03/25/18 09:00 03/25/18 10:00 Temperature 36.9 C Pulse Rate 66 70 70 Respiratory Rate 19 22 22 Blood Pressure 122/70 137/66 125/76 Pulse Oximetry 97 99 98 03/25/18 11:00 03/25/18 12:00 03/25/18 12:30 Temperature 36.9 C Pulse Rate 70 69 70 Respiratory Rate 23 21 21 Blood Pressure 127/76 135/75 125/76 Pulse Oximetry 98 98 98 03/25/18 13:00 03/25/18 14:00 Temperature Pulse Rate 69 70 Respiratory Rate 21 19 Blood Pressure 137/86 127/80 Pulse Oximetry 99 98 Intake & Output 03/24/18 03/25/18 03/25/18 18:59 06:59 18:59 Intake Total 500 / 500 434.2 / 434.2 Output Total 830 / 830 Balance -330 / -330 434.2 / 434.2 Weight 102.1 kg 103.9 kg Intake: IV 500 / 500 434.2 / 434.2 Cathflo Activase Inj 10 MG In 500 / 500 434.2 / 434.2 NS Inj 500 ML @ Per Protocol I- CATHETER TITRATE PRN Rx#: [id number] Output: Urine 830 / 830 Other: # Voids 4 Weight On Admission 102.1 kg Result Diagrams: 03/25/18 11:00 03/25/18 05:00 Objective Remarks: GENERAL: Middle-age male, sitting up in bed. HEENT: Normocephalic. Atraumatic. Pupils equal, round, reactive, conjugate. Mucous membranes are moist NECK: Trachea is midline. There is no JVD. Right sided venous sheath in place with significant oozing, packed and a small compression dressing. CHEST: Equal chest rise. Room air. CARDIOVASCULAR: Normal rate, regular rhythm. Sinus. ABDOMEN: Soft, nontender, nondistended. No guarding. MUSCULOSKELETAL: Pulses 2+. No peripheral edema. NEUROLOGICAL: RASS 0. GCS 15. Follows commands in all 4 extremity's. No focal deficits. Assessment and Plan - Problem List (1) Pulmonary embolus Code(s): I26.99 - Other pulmonary embolism without acute cor pulmonale Status : Acute - Assessment and Plan Plan: Assessment This is a 67-year-old male with a large left pulmonary vein embolus, undergoing catheter directed TPA administration. Patient is at risk for cardiac and pulmonary deterioration. Plan by systems: Neurologic: Pain Hearing deficit Neuro checks per ICU protocol Acetaminophen 650 mg every 6 hours as needed for temp greater than 101 Oxycodone 5/325 for pain scale 1 through 10. Patient complaining of pleuritic chest pain on inspiration Respiratory: Maintain O2 saturation greater than 92%. Patient currently on 2 L nasal cannula O2 sat 97% Duo nebs every 6 hours scheduled every 2 hours as needed CTA Pulm-large embolus left main pulmonary artery Plan catheter directed TPA thrombolysis per invasive radiology Management of TPA per invasive radiology Consult hematology oncology Cardiovascular: Cardiomegaly 2D echo: Preserved EF, mild RV dysfunction, mild RV dilation Follow-up troponin, initial troponin 0 0.28 Maintain map greater than 65mmHG Renal: No Harding indicated at this time -- Strict I/Os FEN/GI: regular diet Zofran for nausea Famotidine GI prophylaxis Bowel regimen Heme/ID: Consult Heme-Onc No indications for cultures at this time All lab draws to be obtained from central line no needle sticks during infusion TPA Monitor CBC Endocrine: Glucose monitoring per ICU protocol -- SSI Prophylaxis: GI Prophylaxis Famotidine DVT Prophylaxis -- SCDs Lines: Peripheral IVs x2. Central line placement and invasive radiology for TPA administration Disposition: Keep in ICU for at least 24 hours post TPA. (1) Pulmonary embolus Qualifiers: Chronicity: acute
--- NOTE | 2018-03-25 17:20 | P.RAD ---
Post Procedure Progress Note - Pre Procedure Diagnosis (1) Pulmonary embolus - Post Procedure Diagnosis (1) Pulmonary embolus - Procedure Information Procedure Date: 03/25/18 Supervising Radiologist: Levi Ramos MD Estimated blood loss (mL): 2 Anesthesia: Local - Plan of Activity Patient to Unit: Critical Care Patient Condition: Good See PACS Report for procedural detail/treatment. Vascular - Arterial Procedure left Thoracic Procedure: Angiogram - Additional Information Findings: Extensive left pulmonary embolus has resolved. Infusion catheter and sheath removed. Vicryl stitch in right IJ venous access and regional hemostasis with thrombin and pressure dressing.
[2018-03-25] MEDS: Heparin/NS PF Inj 500 ML I-CATHETER SCH (17:30)
[2018-03-25 17:35] LABS: Baso % (Auto) 0.7 % (0.0-2.0); Eos # (Auto) 0.1 th/mm3 (0.0-0.4); Hematocrit 37.8 % (39.0-51.0); Hemoglobin 12.8 gm/dL (13.0-17.0); Lymph # (Auto) 1.2 th/mm3 (1.0-4.8); Lymph % (Auto) 19.4 % (9.0-44.0); Mean Corpuscular HGB Conc 33.8 % (32.0-36.0); Mean Corpuscular Hemoglobin 30.7 pg (27.0-34.0); Mean Corpuscular Volume 90.8 fL (80.0-100.0); Mean Platelet Volume 8.2 fL (7.0-11.0); Mono # (Auto) 0.6 th/mm3 (0.0-0.9); Neut # (Auto) 4.2 th/mm3 (1.8-7.7); Neut % (Auto) 67.9 % (16.0-70.0); Platelet Count 113 th/mm3 (150-450); Red Blood Count 4.16 mil/mm3 (4.50-5.90); Red Cell Distribution Width 12.5 % (11.6-17.2); White Blood Count 6.1 th/mm3 (4.0-11.0)
[2018-03-25] MEDS ORDERED: Heparin Drip 25,000 UNIT/250 ML BAG IV.CONT PRN (22:09)
[2018-03-26] MEDS ORDERED: Heparin 10,000 UNITS/10 ML Vial (for IV use) IV.PUSH PRN ×2 (04:09→04:11)
[2018-03-26] MEDS: Sod Chloride 0.9% Inj 1,000 ML IV.SIG SCH ×2 (06:19→23:34)
[2018-03-26] MEDS: Chlorhexidine Gluconate 2% 1 Pack (2 Cloths) TOPICAL SCH (06:20)
[2018-03-26 08:41] LABS: Hematocrit 38.9 % (39.0-51.0); Hemoglobin 13.4 gm/dL (13.0-17.0); Mean Corpuscular HGB Conc 34.3 % (32.0-36.0); Mean Corpuscular Hemoglobin 31.4 pg (27.0-34.0); Mean Corpuscular Volume 91.7 fL (80.0-100.0); Mean Platelet Volume 8.3 fL (7.0-11.0); Platelet Count 126 th/mm3 (150-450); Red Blood Count 4.25 mil/mm3 (4.50-5.90); Red Cell Distribution Width 12.8 % (11.6-17.2); White Blood Count 5.4 th/mm3 (4.0-11.0)
--- NOTE | 2018-03-26 08:49 | P.PNIM ---
Subjective Interval history: Patient denies any shortness of breath, no pain with deep inspiration. No chest pain. Complaining of right arm and forearm pain, swollen. Afebrile. After walking today with physical therapy, became dizzy and lightheaded, blood pressure in the high 80s. Physical Exam Vital signs: Vital Signs 03/25/18 09:00 03/25/18 10:00 03/25/18 11:00 Temperature Pulse Rate 70 70 70 Respiratory Rate 22 22 23 Blood Pressure 137/66 125/76 127/76 Pulse Oximetry 99 98 98 03/25/18 12:00 03/25/18 12:30 03/25/18 13:00 Temperature 98.5 F Pulse Rate 69 70 69 Respiratory Rate 21 21 21 Blood Pressure 135/75 125/76 137/86 Pulse Oximetry 98 98 99 03/25/18 14:00 03/25/18 14:30 03/25/18 15:00 Temperature Pulse Rate 70 75 72 Respiratory Rate 19 23 Blood Pressure 127/80 142/83 H Pulse Oximetry 98 98 98 03/25/18 15:30 03/25/18 16:40 03/25/18 16:43 Temperature Pulse Rate 71 72 Respiratory Rate 22 23 Blood Pressure 150/79 H 149/89 H Pulse Oximetry 98 96 98 03/25/18 17:00 03/25/18 17:09 03/25/18 17:35 Temperature Pulse Rate 70 72 75 Respiratory Rate 23 Blood Pressure 143/88 H 140/85 Pulse Oximetry 98 98 03/25/18 17:48 03/25/18 18:00 03/25/18 18:05 Temperature Pulse Rate 76 73 71 Respiratory Rate Blood Pressure 114/74 Pulse Oximetry 97 95 03/25/18 18:35 03/25/18 19:00 03/25/18 19:05 Temperature Pulse Rate 76 74 75 Respiratory Rate Blood Pressure 133/81 125/80 Pulse Oximetry 97 98 96 03/25/18 19:35 03/25/18 20:00 03/25/18 20:34 Temperature 98.7 F Pulse Rate 77 68 Respiratory Rate 22 Blood Pressure 122/62 133/80 Pulse Oximetry 97 98 97 03/25/18 21:00 03/25/18 21:01 03/25/18 22:00 Temperature Pulse Rate 72 73 74 Respiratory Rate 23 Blood Pressure 127/84 Pulse Oximetry 98 98 93 L 03/25/18 22:58 03/25/18 23:00 03/26/18 00:00 Temperature 99.2 F Pulse Rate 74 74 68 Respiratory Rate 26 H 21 16 Blood Pressure 146/82 H 141/79 H 123/74 Pulse Oximetry 95 98 93 L 03/26/18 01:00 03/26/18 02:00 03/26/18 03:00 Temperature Pulse Rate 69 68 64 Respiratory Rate 13 16 17 Blood Pressure 119/77 135/76 120/61 Pulse Oximetry 98 97 96 03/26/18 04:00 03/26/18 05:00 03/26/18 06:00 Temperature 99 F Pulse Rate 63 61 64 Respiratory Rate 13 15 23 Blood Pressure 115/69 124/81 116/72 Pulse Oximetry 95 97 97 Intake & Output 03/25/18 03/26/18 03/26/18 18:59 06:59 18:59 Intake Total 884.2 / 884.2 Output Total 500 / 500 600 / 600 Balance 384.2 / 384.2 -600 / -600 Weight 104.1 kg Intake: IV 884.2 / 884.2 Cathflo Activase Inj 10 MG In 434.2 / 434.2 NS Inj 500 ML @ Per Protocol I- CATHETER TITRATE PRN Rx#: [id number] Heparin/NS PF Inj 500 ML @ 30 450 / 450 mls/hr I-CATHETER .[id number] [facility] Rx#:[id number] Output: Urine 500 / 500 600 / 600 Other: # Bowel Movements 0 Routine HEENT Exam Comments: Not in distress, ambulating Pupils equal round reactive Trachea is midline, no JVD Regular rate and rhythm, no murmurs Clear breath sounds Abdomen soft nontender No lower extremity edema. Right upper extremity swollen, tender to palpation, no erythema Alert awake and oriented x3, no focal deficits. Results Labs CBC & Chem 7: 03/26/18 08:00 03/25/18 05:00 Assessment and Plan (1) Pulmonary embolus: Code(s): I26.99 - Other pulmonary embolism without acute cor pulmonale Status: Acute Plan This is a 67-year-old male with a large left pulmonary vein embolus, undergoing catheter directed TPA administration. Patient is at risk for cardiac and pulmonary deterioration. Pulmonary Embolus - s/p tPA, pain control with tylenol and oxycodone for pleuritic chest pain on inspiration, oxygen support, duo nebs. Hematology consulted. Will need anticoagulation for 6 months, will use apixaban 5 mg twice daily. 2D echo: Preserved EF, mild RV dysfunction, mild RV dilation, mild troponin elevation likely secondary to demand ischemia from PE. Keep heparin for now Right upper extremity swelling-rule out thrombus, keep heparin for now while awaiting ultrasound of the right upper extremity. Hypotension-could be from hypovolemia from bleeding yesterday. Keep in the ICU for now. We will give normal saline IV bolus. Check orthostatics. Discussed with nursing. DVT Prophylaxis: Heparin switched to apixaban Progress Note: Quality VTE Deep Vein Thrombosis/Pulmonary Embolism Present on Admission: Yes _ (1) Pulmonary embolus Qualifiers: Acute cor pulmonale presence: Chronicity: acute Pulmonary embolism type:
[2018-03-26] MEDS: Famotidine PF Inj 20 MG/2 ML Vial IV.PUSH SCH ×2 (09:47→20:53)
[2018-03-26] MEDS: Senna/Docusate Sodium 8.6/50 MG Tablet PO SCH ×2 (09:48→20:51)
--- NOTE | 2018-03-26 10:01 | IR ---
EXAM DATE: 03/24/2018 6:55 PM EST AGE/SEX: 67 years / Male INDICATIONS: Patient presents with bilateral pulmonary embolisms in need of intervention. CLINICAL DATA: This is the patient's initial encounter. Patient reports that signs and symptoms have been present for 1 day and indicates a pain score of 0/10. MEDICAL/SURGICAL HISTORY: None. None. COMPARISON: No prior exams available for comparison. FLUORO TIME (min): 4.4 IMAGE SERIES: 8 RADIATION DOSE: 112.8mGy CAK ACCESS SITE: Right internal jugular vein SEDATION TIME (min): 30 CONTRAST (cc): 20cc Visipaque (iodixanol) MEDICATION(S): 1mg midazolam (Versed) IV ; 50mcg fentanyl (Sublimaze) IV ; ; ; DEVICE(S): Left EV3 Infusion catheter Left Pulmonary vein [id number] ; Right ; ; ; ; ; . . PROCEDURE : 1. Ultrasound-guided puncture of the access site. 2. Conscious sedation with continuous EKG and Oximetry monitoring. 3. Angiography of the left pulmonary artery 4. TPA thrombolysis, left pulmonary artery The risks, benefits and alternatives to the procedure were explained and verbal and written consent w as obtained. The site was prepped in sterile fashion. Full sterile technique was used, including ca p, mask, sterile gloves and gown and a large sterile sheet. Hand hygiene and 2% chlorhexidine and/or betadine/alcohol prep was utilized per protocol for cutaneous antisepsis. Sterile gel and sterile p robe cover were utilized for ultrasound guidance. The skin and subcutaneous tissues were infiltrated with local anesthetic solution. With ultrasound and fluoroscopic guidance the right internal jugular vein was punctured and a 6 Frenc h vascular sheath was placed. Through the sheath, a glide wire and omni flush catheter were manipulated into the right ventricle th en out the pulmonary outflow tract. Wire was then advanced across the thrombus in the left main pulmo nary artery. Catheter was advanced down to a lower lobe branch of the pulmonary arteries. Contrast in jection confirmed extensive thrombus of the left pulmonary artery. Over an exchange Hooks wire, a 10 cm infusion catheter was positioned across the extensive thrombus and TPA infusion was instituted at 2 mg an hour. The puncture site was closed with manual pressure and hemostasis was obtained. The patient tolerated the procedure well and there were no complications. Conscious sedation was performed with the prescribed dosages and duration as above in the presence of an independent trained radiology nurse to assist in the monitoring of the patient. EKG and oximetry remained stable throughout the procedure. CONCLUSION: 1. Extensive embolus in the left pulmonary artery. Based on the patient's CTA, minimal emboli identi fied in small branch vessels of the right pulmonary artery. 2. Because of the asymmetry of the clot burden, an infusion catheter was placed across the large ildefonso t in the left pulmonary artery and TPA infusion instituted at 2 mg an hour. 3. Patient will be monitored in the ICU overnight. Electronically signed by: Levi Ramos MD Board Certified Radiologist 03/26/2018 9:59 AM EST
[2018-03-26] MEDS ORDERED: Sod Chloride 0.9% Inj 1,000 ML IV.SIG SCH (10:15)
--- NOTE | 2018-03-26 10:56 | IR ---
EXAM DATE: 03/25/2018 5:08 PM EST AGE/SEX: 67 years / Male INDICATIONS: Patient presents with history of pulmonary embolus with existing infusion catheter in n eed of follow up angiogram to evaluate post TPA infusion. CLINICAL DATA: This is the patient's subsequent encounter. Patient reports that signs and symptoms h ave been present for 2 days and indicates a pain score of 0/10. MEDICAL/SURGICAL HISTORY: . Pulmonary Embolism . None. COMPARISON: No prior exams available for comparison. FLUORO TIME (min): 0.8 IMAGE SERIES: 1 RADIATION DOSE: 43.2 mGy CAK ACCESS SITE: Right internal jugular vein CONTRAST (cc): 5 Visipaque (iodixanol) DEVICE(S): . . PROCEDURE: 1. Conscious sedation with continuous EKG and Oximetry monitoring. 2. Angiography of the left pulmonary artery The risks, benefits and alternatives to the procedure were explained and verbal and written consent w as obtained. The site was prepped in sterile fashion. Full sterile technique was used, including ca p, mask, sterile gloves and gown and a large sterile sheet. Hand hygiene and 2% chlorhexidine and/or betadine/alcohol prep was utilized per protocol for cutaneous antisepsis. The skin and subcutaneous tissues were infiltrated with local anesthetic solution. Contrast injection through the existing 10 cm infusion catheter in the left pulmonary arteries demons trated marked interval improvement in the flow through the artery with almost complete resolution of previously seen occlusive thrombus. Minimal thrombus remains there was no restriction of flow. The infusion catheter was removed. Because of some bleeding at the sheath dermatotomy, a 4-0 Vicryl s titch was used to close the dermatotomy site after sheath removal. Approximately 5000 units of thromb in was then injected into the regional tissues of direct pressure maintained to hemostasis. Conscious sedation was performed with the prescribed dosages and duration as above in the presence of an independent trained radiology nurse to assist in the monitoring of the patient. EKG and oximetry remained stable throughout the procedure. CONCLUSION: 1. Almost complete resolution of the previously seen extensive left pulmonary embolus. No flow restr iction. 2. Right IJ access was closed with a 4-0 Vicryl subcuticular stitch and thrombin to hemostasis Electronically signed by: Levi Ramos MD Board Certified Radiologist 03/26/2018 10:55 AM EST
[2018-03-26] MEDS: Sod Chloride 0.9% Inj 1,000 ML IV.CONT SCH ×2 (11:12→23:35)
--- NOTE | 2018-03-26 11:39 | US ---
EXAM DATE: 03/26/2018 11:37 AM EST AGE/SEX: 67 years / Male INDICATIONS: Right arm swelling and hand pain. CLINICAL DATA: This is the patient's initial encounter. Patient reports that signs and symptoms have been present for 1 day and indicates a pain score of 3/10. MEDICAL/SURGICAL HISTORY: . Diabetes. Hepatitis C. Congestive heart failure. Hypertension. . P acemaker. Gastric bypass. COMPARISON: No prior exams available for comparison. FINDINGS: The vessels are compressible and augmentation response is documented. No filling defects a re seen. The flow is phasic with respiration. Other: None. CONCLUSION: 1. Negative for deep venous thrombosis Electronically signed by: Eliecer Smith MD Board Certified Radiologist 03/26/2018 11:38 AM EST
[2018-03-26] MEDS ORDERED: Heparin Drip 25,000 UNIT/250 ML BAG IV.CONT PRN (16:13)
--- NOTE | 2018-03-26 17:28 | P.PNONC ---
Subjective Interval history: Patient lying in bed, awake and alert in no acute distress. He continues on heparin drip, status post directed TPA with IR yesterday for large PE. Today patient complains of right forearm pain, swelling and hardness. He states he feels he cannot extend his fingers. He is noted to have some bruising at his wrist and lateral forearm. Patient states the pain started yesterday when he was in IR for procedure, he states the blood pressure cuff was on his wrist and he was feeling severe pain at that time. He denies any bleeding. Denies shortness of breath or chest pain. Objective Vital Signs/Intake & Output: Vital Signs 03/25/18 17:35 03/25/18 17:48 03/25/18 18:00 Temperature Pulse Rate 75 76 73 Respiratory Rate Blood Pressure 140/85 Pulse Oximetry 97 03/25/18 18:05 03/25/18 18:35 03/25/18 19:00 Temperature Pulse Rate 71 76 74 Respiratory Rate Blood Pressure 114/74 133/81 Pulse Oximetry 95 97 98 03/25/18 19:05 03/25/18 19:35 03/25/18 20:00 Temperature 98.7 F Pulse Rate 75 77 68 Respiratory Rate 22 Blood Pressure 125/80 122/62 133/80 Pulse Oximetry 96 97 98 03/25/18 20:34 03/25/18 21:00 03/25/18 21:01 Temperature Pulse Rate 72 73 Respiratory Rate 23 Blood Pressure 127/84 Pulse Oximetry 97 98 98 03/25/18 22:00 03/25/18 22:58 03/25/18 23:00 Temperature Pulse Rate 74 74 74 Respiratory Rate 26 H 21 Blood Pressure 146/82 H 141/79 H Pulse Oximetry 93 L 95 98 03/26/18 00:00 03/26/18 01:00 03/26/18 02:00 Temperature 99.2 F Pulse Rate 68 69 68 Respiratory Rate 16 13 16 Blood Pressure 123/74 119/77 135/76 Pulse Oximetry 93 L 98 97 03/26/18 03:00 03/26/18 04:00 03/26/18 05:00 Temperature 99 F Pulse Rate 64 63 61 Respiratory Rate 17 13 15 Blood Pressure 120/61 115/69 124/81 Pulse Oximetry 96 95 97 03/26/18 06:00 03/26/18 07:00 03/26/18 08:00 Temperature 98.4 F Pulse Rate 64 64 68 Respiratory Rate 23 22 16 Blood Pressure 116/72 124/80 123/72 Pulse Oximetry 97 97 95 03/26/18 08:23 03/26/18 08:54 03/26/18 09:00 Temperature Pulse Rate 66 69 69 Respiratory Rate 19 28 H 25 H Blood Pressure 132/70 129/77 Pulse Oximetry 98 97 98 03/26/18 09:14 03/26/18 09:28 03/26/18 09:29 Temperature Pulse Rate 72 Respiratory Rate 17 Blood Pressure 86/54 L 92/60 L Pulse Oximetry 97 03/26/18 09:45 03/26/18 09:51 03/26/18 09:56 Temperature Pulse Rate 72 Respiratory Rate Blood Pressure 97/65 L Pulse Oximetry 95 03/26/18 09:58 03/26/18 10:00 03/26/18 10:19 Temperature Pulse Rate 72 73 67 Respiratory Rate 23 29 H 17 Blood Pressure 98/67 L 98/69 L 71/49 L Pulse Oximetry 96 96 97 03/26/18 10:23 03/26/18 10:30 03/26/18 10:31 Temperature Pulse Rate 55 L Respiratory Rate 22 Blood Pressure 76/50 L 119/71 Pulse Oximetry 96 94 L 03/26/18 10:34 03/26/18 10:39 03/26/18 10:45 Temperature Pulse Rate 64 67 71 Respiratory Rate 19 26 H 30 H Blood Pressure 119/75 122/77 121/71 Pulse Oximetry 96 98 98 03/26/18 10:55 03/26/18 11:00 03/26/18 11:01 Temperature Pulse Rate 68 67 66 Respiratory Rate 19 17 18 Blood Pressure 131/70 120/70 Pulse Oximetry 97 97 97 03/26/18 11:06 03/26/18 11:11 03/26/18 11:16 Temperature Pulse Rate 67 67 65 Respiratory Rate 25 H 18 17 Blood Pressure 121/72 119/72 118/74 Pulse Oximetry 98 96 97 03/26/18 11:27 03/26/18 12:00 03/26/18 12:41 Temperature 98.6 F Pulse Rate 69 71 70 Respiratory Rate 26 H 15 Blood Pressure 118/74 126/71 Pulse Oximetry 97 93 L 03/26/18 13:00 03/26/18 13:04 03/26/18 13:05 Temperature Pulse Rate 67 77 79 Respiratory Rate 15 41 H 38 H Blood Pressure 117/72 128/80 121/82 Pulse Oximetry 94 L 97 92 L 03/26/18 13:07 03/26/18 13:26 03/26/18 13:40 Temperature Pulse Rate 84 Respiratory Rate 38 H Blood Pressure 115/76 100/74 Pulse Oximetry 97 97 03/26/18 14:00 03/26/18 14:20 03/26/18 14:31 Temperature Pulse Rate 86 84 86 Respiratory Rate 29 H 29 H 38 H Blood Pressure 95/71 L 89/61 L 99/59 L Pulse Oximetry 97 97 95 03/26/18 14:40 Temperature Pulse Rate 81 Respiratory Rate 36 H Blood Pressure 118/64 Pulse Oximetry 97 Intake & Output 03/25/18 03/26/18 03/26/18 18:59 06:59 18:59 Intake Total 884.2 / 884.2 1999 Output Total 500 / 500 600 / 600 Balance 384.2 / 384.2 -600 / -600 1999 Weight 104.1 kg Intake: IV 884.2 / 884.2 1999 Cathflo Activase Inj 10 MG In 434.2 / 434.2 NS Inj 500 ML @ Per Protocol I- CATHETER TITRATE PRN Rx#: [id number] Heparin/NS PF Inj 500 ML @ 30 450 / 450 mls/hr I-CATHETER .[id number] [facility] Rx#:[id number] NS Inj 1,000 ML @ As Directed 1999 IV.SIG .Q0M [facility] Rx#:[id number] Output: Urine 500 / 500 600 / 600 Other: # Bowel Movements 0 Result Diagrams: 03/26/18 08:00 03/25/18 05:00 Laboratory Results: Laboratory Results - last 24 hr 03/25/18 03/25/18 03/26/18 17:15 17:15 01:07 WBC 6.1 RBC 4.16 L Hgb 12.8 L Hct 37.8 L MCV 90.8 MCH 30.7 MCHC 33.8 RDW 12.5 Plt Count 113 L MPV 8.2 Neut % (Auto) 67.9 Lymph % (Auto) 19.4 [place] % (Auto) 10.0 H Eos % (Auto) 2.0 Baso % (Auto) 0.7 Neut # (Auto) 4.2 Lymph # (Auto) 1.2 [place] # (Auto) 0.6 Eos # (Auto) 0.1 Baso # (Auto) 0.0 WBC Differential . Differential Comment Auto diff final APTT 56.7 H D 61.7 H Lactic Acid 03/26/18 03/26/18 03/26/18 08:00 08:00 08:00 WBC 5.4 RBC 4.25 L Hgb 13.4 Hct 38.9 L MCV 91.7 MCH 31.4 MCHC 34.3 RDW 12.8 Plt Count 126 L MPV 8.3 Neut % (Auto) Lymph % (Auto) [place] % (Auto) Eos % (Auto) Baso % (Auto) Neut # (Auto) Lymph # (Auto) [place] # (Auto) Eos # (Auto) Baso # (Auto) WBC Differential Differential Comment APTT Cancelled 71.0 H Lactic Acid 03/26/18 16:20 WBC RBC Hgb Hct MCV MCH MCHC RDW Plt Count MPV Neut % (Auto) Lymph % (Auto) [place] % (Auto) Eos % (Auto) Baso % (Auto) Neut # (Auto) Lymph # (Auto) [place] # (Auto) Eos # (Auto) Baso # (Auto) WBC Differential Differential Comment APTT Lactic Acid 1.3 Imaging Studies: Impressions Infusion Thrombolysis 03/24/18 16:22 CONCLUSION: 1. Extensive embolus in the left pulmonary artery. Based on the patient's CTA, minimal emboli identified in small branch vessels of the right pulmonary artery. 2. Because of the asymmetry of the clot burden, an infusion catheter was placed across the large clot in the left pulmonary artery and TPA infusion instituted at 2 mg an hour. 3. Patient will be monitored in the ICU overnight. Miscellaneous Special Procedure 03/25/18 00:00 CONCLUSION: 1. Almost complete resolution of the previously seen extensive left pulmonary embolus. No flow restriction. 2. Right IJ access was closed with a 4-0 Vicryl subcuticular stitch and thrombin to hemostasis Venous Doppler Study 03/26/18 06:39 CONCLUSION: 1. Negative for deep venous thrombosis Medications: Active Medications Generic Name Dose Route Start Last Admin Trade Name Freq PRN Reason Stop Dose Admin Hydrocodone Bitart/Acetaminophen 1 tab 03/24/18 16:53 03/26/18 11:47 [place] 5/325 PO 1 tab Q4H PRN Administration PAIN SCALE 1 TO 5 Albuterol 1 ampul 03/24/18 22:00 03/26/18 15:13 Duoneb Neb (Bharathi) NEB Not Given Q6HR NEB BHARATHI Chlorhexidine Gluconate 3 pack 03/25/18 04:00 03/26/18 06:20 Chlorhexidine 2% Cloth TOPICAL 03/30/18 03:59 3 pack DAILY@0400 BHARATHI Administration Famotidine 20 mg 03/24/18 21:00 03/26/18 09:47 Pepcid Pf Inj IV.PUSH Not Given Q12HR BHARATHI Sodium Chloride 1,000 mls @ 30 mls/hr 03/24/18 22:45 03/26/18 11:22 Ns Inj IV.SIG Infused .Q24H BHARATHI Infusion Sodium Chloride 1,000 mls @ 0 mls/hr 03/26/18 10:15 03/26/18 11:42 Ns Inj IV.SIG Infused .Q0M BHARATHI Infusion As Directed Sodium Chloride 1,000 mls @ 100 mls/hr 03/26/18 11:00 03/26/18 11:12 Ns Inj IV.CONT 100 mls/hr .Q10H BHARATHI Administration Senna/Docusate Sodium 1 tab 03/24/18 21:00 03/26/18 09:48 Susan-Colace PO Not Given BID BHARATHI Sodium Chloride 2 ml 03/24/18 21:00 03/26/18 09:47 Ns Flush IV.FLUSH Not Given BID BHARATHI Objective Remarks: GENERAL: Well-nourished, well-developed patient, in no acute distress. SKIN: Warm and dry. Ecchymosis to bilateral forearms. HEAD: Normocephalic. EYES: No scleral icterus. No injection or drainage. NECK: Supple, trachea midline. CARDIOVASCULAR: Regular rate and rhythm without murmurs. RESPIRATORY: Breath sounds clear, equal bilaterally. No accessory muscle use. GASTROINTESTINAL: Abdomen soft, non-tender, nondistended. EXTREMITIES: No cyanosis. Entire right forearm tight, bruising from wrist to elbow. Radial pulse present. Right upper arm soft, left arm soft with ecchymosis at left AC. MUSCULOSKELETAL: Adequate muscle tone. NEUROLOGICAL: No obvious focal deficit. Awake, alert, and oriented x3. PSYCHIATRIC: Appropriate mood and affect; insight and judgment normal. Assessment/Plan - Plan Mr. Waddell is a pleasant 67-year-old gentleman currently hospitalized for a massive PE and right deep venous thrombosis extending across the knee to mid thigh. Plan: 1. Massive PE, status post catheter directed TPA and IR on 03/25/2018. Continues on heparin drip. 2. Right DVT, continues on heparin drip. Continue to monitor for bleeding. 3. Right forearm tightness, ultrasound was negative for DVT, will obtain a CT scan to assure no compartment syndrome. Also request the nurses to measure his arm 3 times per shift. Discussed with RN. Continue to monitor closely. - Attending Statement The exam, history, and the medical decision-making described in the above note were completed with the assistance of the mid-level provider. I reviewed and agree with the findings presented. I attest that I had a [id number] encounter with the patient on the same day, and personally performed and documented my assessment and findings in the medical record. Resting comfortably in bed. No distress. Awaiting results of CT of right arm. Apixaban at discharge.
--- NOTE | 2018-03-26 18:37 | CT ---
EXAM DATE: 03/26/2018 6:29 PM EST AGE/SEX: 67 years / Male INDICATIONS: Right forearm swelling and redness. Rule out compartment syndrome. CLINICAL DATA: This is the patient's initial encounter. Patient reports that signs and symptoms have been present for 1 day and indicates a pain score of 8/10. MEDICAL/SURGICAL HISTORY: . Pulmonary embolism. None. RADIATION DOSE: 7.63 CTDI (mGy) COMPARISON: No prior exams available for comparison. TECHNIQUE: Multiple contiguous axial images were acquired using a multirow detector CT scanner witho ut contrast. Multiplanar reconstruction was performed in the sagittal and coronal planes. Using aut omated exposure control and adjustment of the mA and/or kV according to patient size, radiation dose was kept as low as reasonably achievable to obtain optimal diagnostic quality images. DICOM format i mage data is available electronically for review and comparison. FINDINGS: Bones: The bony structures about the forefoot are in normal alignment. The metatarsi, phalanges, an d distal tarsal row osseous structures are intact. No fracture is seen. Joints: No significant arthropathy or bony hypertrophy is seen. Soft Tissues: No soft tissue mass is seen. There is mild stranding of the subcutaneous fat throughou t the forearm. No discrete abscess on this unenhanced study. Other: No foreign bodies seen. CONCLUSION: 1. No discrete abscess seen on this limited unenhanced study. 2. Mild stranding of the subcutaneous fat throughout the forearm which would suggest either edema or cellulitis. 3. Compartment syndrome is a clinical diagnosis and cannot be made from a CT scan. Electronically signed by: Nate Shrestha MD Board Certified Radiologist 03/26/2018 6:35 PM EST
[2018-03-27] MEDS: Chlorhexidine Gluconate 2% 1 Pack (2 Cloths) TOPICAL SCH (04:53)
[2018-03-27 06:46] LABS: Baso % (Auto) 0.7 % (0.0-2.0); Eos # (Auto) 0.2 th/mm3 (0.0-0.4); Eos % (Auto) 3.4 % (0.0-4.0); Hematocrit 31.9 % (39.0-51.0); Hemoglobin 11.1 gm/dL (13.0-17.0); Lymph # (Auto) 1.2 th/mm3 (1.0-4.8); Mean Corpuscular HGB Conc 34.7 % (32.0-36.0); Mean Corpuscular Hemoglobin 31.6 pg (27.0-34.0); Mean Corpuscular Volume 91.2 fL (80.0-100.0); Mean Platelet Volume 8.6 fL (7.0-11.0); Mono # (Auto) 0.6 th/mm3 (0.0-0.9); Mono % (Auto) 11.1 % (0.0-8.0); Neut % (Auto) 60.8 % (16.0-70.0); Platelet Count 143 th/mm3 (150-450); Red Cell Distribution Width 12.4 % (11.6-17.2)
[2018-03-27 07:05] LABS: Calcium 7.5 mg/dL (8.5-10.1); Carbon Dioxide 25.1 meq/L (21.0-32.0); Potassium 3.8 meq/L (3.5-5.1)
[2018-03-27] MEDS: Famotidine PF Inj 20 MG/2 ML Vial IV.PUSH SCH ×2 (08:54→20:57)
[2018-03-27] MEDS: Sod Chloride 0.9% Inj 1,000 ML IV.CONT SCH ×2 (08:54→17:32)
[2018-03-27] MEDS: Senna/Docusate Sodium 8.6/50 MG Tablet PO SCH ×2 (08:55→20:58)
--- NOTE | 2018-03-27 16:29 | P.PNIM ---
Subjective Interval history: Follow up for large left sided PE s/p catheter directed TPA. Patient is currently doing well. Family members at [facility]. No acute concerns. No chest pain, shortness of breath, fever, chills. Remains in good spirit. Physical Exam Vital signs: Vital Signs 03/26/18 16:40 03/26/18 17:00 03/26/18 17:20 Temperature Pulse Rate 80 79 75 Respiratory Rate 36 H 30 H 26 H Blood Pressure 119/76 113/67 119/76 Pulse Oximetry 98 96 96 03/26/18 17:33 03/26/18 17:42 03/26/18 18:00 Temperature Pulse Rate 90 76 74 Respiratory Rate 21 Blood Pressure 121/69 106/72 Pulse Oximetry 90 L 03/26/18 18:30 03/26/18 19:00 03/26/18 19:30 Temperature Pulse Rate 77 76 78 Respiratory Rate 30 H 25 H 38 H Blood Pressure 132/82 131/78 120/74 Pulse Oximetry 03/26/18 20:00 03/26/18 20:30 03/26/18 21:00 Temperature Pulse Rate 82 82 80 Respiratory Rate 25 H 24 22 Blood Pressure 112/67 114/72 109/65 Pulse Oximetry 03/26/18 21:30 03/26/18 22:00 03/26/18 22:30 Temperature Pulse Rate 78 79 81 Respiratory Rate 21 26 H 12 Blood Pressure 113/71 113/71 111/72 Pulse Oximetry 03/26/18 23:00 03/26/18 23:30 03/27/18 00:00 Temperature Pulse Rate 79 71 70 Respiratory Rate 23 18 19 Blood Pressure 120/77 97/54 L 95/52 L Pulse Oximetry 03/27/18 00:30 03/27/18 01:00 03/27/18 01:30 Temperature Pulse Rate 70 69 69 Respiratory Rate 13 18 15 Blood Pressure 120/68 109/64 120/69 Pulse Oximetry 03/27/18 02:00 03/27/18 02:30 03/27/18 03:00 Temperature Pulse Rate 68 69 66 Respiratory Rate 17 10 L 18 Blood Pressure 116/73 100/59 L 123/67 Pulse Oximetry 03/27/18 03:30 03/27/18 04:00 03/27/18 04:30 Temperature 99.0 F Pulse Rate 74 72 64 Respiratory Rate 20 25 H 11 L Blood Pressure 118/68 126/76 118/69 Pulse Oximetry 100 03/27/18 05:00 03/27/18 05:30 03/27/18 06:00 Temperature Pulse Rate 67 64 62 Respiratory Rate 13 19 23 Blood Pressure 107/72 121/71 Pulse Oximetry 03/27/18 06:07 03/27/18 06:30 03/27/18 07:00 Temperature Pulse Rate 67 60 61 Respiratory Rate 25 H 14 14 Blood Pressure 123/77 107/67 110/72 Pulse Oximetry 03/27/18 07:14 03/27/18 07:18 03/27/18 07:29 Temperature Pulse Rate 63 63 Respiratory Rate 28 H 16 Blood Pressure 116/74 119/76 Pulse Oximetry 03/27/18 08:00 03/27/18 09:00 03/27/18 10:00 Temperature 98.4 F Pulse Rate 62 71 73 Respiratory Rate 22 32 H 35 H Blood Pressure Pulse Oximetry 03/27/18 11:00 03/27/18 11:30 03/27/18 12:00 Temperature 98.6 F Pulse Rate 67 67 64 Respiratory Rate 28 H 18 Blood Pressure Pulse Oximetry 03/27/18 12:54 03/27/18 13:00 03/27/18 15:30 Temperature Pulse Rate 64 70 70 Respiratory Rate 28 H 31 H Blood Pressure 112/73 138/83 Pulse Oximetry Intake & Output 03/26/18 03/27/18 03/27/18 18:59 06:59 18:59 Intake Total 1999 1250 / 1250 1000 / 1000 Output Total 800 / 800 425 / 425 Balance 1200 / 1200 825 / 825 1000 / 1000 Weight 101.8 kg Intake: IV 1999 1250 / 1250 1000 / 1000 NS Inj 1,000 ML @ 100 mls/hr IV 1000 / 1000 1000 / 1000 .CONT .Q10H [facility] Rx#:[id number] NS Inj 1,000 ML @ As Directed 1999 IV.SIG .Q0M [facility] Rx#:[id number] Output: Urine 800 / 800 425 / 425 Other: # Voids 2 Date of Last Bowel Movement 03/26/18 # Bowel Movements 1 Narrative: GENERAL: Alert, oriented x 3, NAD. SKIN: Warm and dry. HEAD: Normocephalic. EYES: No scleral icterus. No injection or drainage. NECK: Supple, trachea midline. No JVD or lymphadenopathy. CARDIOVASCULAR: Regular rate and rhythm without murmurs, gallops, or rubs. RESPIRATORY: Breath sounds equal bilaterally. No accessory muscle use. GASTROINTESTINAL: Abdomen soft, non-tender, nondistended. MUSCULOSKELETAL: No cyanosis. Right lower ext edema noted. BACK: Nontender without obvious deformity. No CVA tenderness. Results Labs CBC & Chem 7: 03/27/18 05:46 03/27/18 05:46 Imaging Imaging: Impressions Forearm CT 03/26/18 00:00 CONCLUSION: 1. No discrete abscess seen on this limited unenhanced study. 2. Mild stranding of the subcutaneous fat throughout the forearm which would suggest either edema or cellulitis. 3. Compartment syndrome is a clinical diagnosis and cannot be made from a CT scan. Assessment and Plan Plan Mr. Waddell is a pleasant 67 year old male with a history of prostate cancer and remote history of untreated DVT who presented to the ED on 03/24/2018 due to acute onset of chest discomfort, severe dyspnea. He recently drove from [employer] for the race. Upon evaluation, a large left sided PE was noted as well as extensive DVT of the right lower ext. Patient underwent emergent catheter directed TPA administration and was observed in the ICU where he remained on heparin drip. Critical care team as well as hematology service were consulted. Large left sided occlusive Pulmonary embolism Smaller right sided pulmonary embolism Extensive right sided lower ext DVT -s/p Catheter directed TPA by IR. -Currently on room air, on heparin drip -Hematology is following. Discussed with Civil Rights Investigator. -Will start patient on Apixaban 10mg BID tonight and stop heparin drip at the same time. -If patient continues to do well tonight and tomorrow morning, he can likely be discharged home on Apixaban. Left arm swelling -likely related to IV catheter that was there before. No DVT on US. -Able to move all fingers. -No evidence of compartment syndrome, cellulitis. History of Prostate cancer -Patient is advised to follow up with PCP. Last PSA was apparently 6. Full code. Heparin and later switch to Apixaban tonight. Progress Note: Quality VTE Deep Vein Thrombosis/Pulmonary Embolism Present on Admission: Yes
--- NOTE | 2018-03-28 00:32 | P.PNONC ---
Subjective Interval history: Resting in bed. Arm pain improved. Objective Vital Signs/Intake & Output: Vital Signs 03/27/18 01:00 03/27/18 01:30 03/27/18 02:00 Temperature Pulse Rate 69 69 68 Respiratory Rate 18 15 17 Blood Pressure 109/64 120/69 116/73 Pulse Oximetry 03/27/18 02:30 03/27/18 03:00 03/27/18 03:30 Temperature Pulse Rate 69 66 74 Respiratory Rate 10 L 18 20 Blood Pressure 100/59 L 123/67 118/68 Pulse Oximetry 03/27/18 04:00 03/27/18 04:30 03/27/18 05:00 Temperature 99.0 F Pulse Rate 72 64 67 Respiratory Rate 25 H 11 L 13 Blood Pressure 126/76 118/69 107/72 Pulse Oximetry 100 03/27/18 05:30 03/27/18 06:00 03/27/18 06:07 Temperature Pulse Rate 64 62 67 Respiratory Rate 19 23 25 H Blood Pressure 121/71 123/77 Pulse Oximetry 03/27/18 06:30 03/27/18 07:00 03/27/18 07:14 Temperature Pulse Rate 60 61 63 Respiratory Rate 14 14 28 H Blood Pressure 107/67 110/72 116/74 Pulse Oximetry 03/27/18 07:18 03/27/18 07:29 03/27/18 08:00 Temperature 98.4 F Pulse Rate 63 62 Respiratory Rate 16 22 Blood Pressure 119/76 Pulse Oximetry 03/27/18 09:00 03/27/18 10:00 03/27/18 11:00 Temperature Pulse Rate 71 73 67 Respiratory Rate 32 H 35 H 28 H Blood Pressure Pulse Oximetry 03/27/18 11:30 03/27/18 12:00 03/27/18 12:54 Temperature 98.6 F Pulse Rate 67 64 64 Respiratory Rate 18 28 H Blood Pressure 112/73 Pulse Oximetry 03/27/18 13:00 03/27/18 13:07 03/27/18 15:30 Temperature Pulse Rate 70 66 70 Respiratory Rate 31 H 29 H Blood Pressure 138/83 Pulse Oximetry 03/27/18 17:36 03/27/18 17:37 03/27/18 19:00 Temperature 98.6 F Pulse Rate 71 76 Respiratory Rate Blood Pressure 122/78 Pulse Oximetry Intake & Output 03/27/18 03/27/18 03/28/18 06:59 18:59 06:59 Intake Total 1250 / 1250 1999 Output Total 425 / 425 Balance 825 / 825 1999 Weight 101.8 kg Intake: IV 1250 / 1250 1999 NS Inj 1,000 ML @ 100 mls/hr IV 1000 / 1000 1999 .CONT .Q10H [facility] Rx#:[id number] Output: Urine 425 / 425 Other: # Voids 6 Date of Last Bowel Movement 03/26/18 Result Diagrams: 03/28/18 05:52 03/27/18 05:46 Laboratory Results: Laboratory Results - last 24 hr 03/27/18 03/27/18 03/27/18 05:46 05:46 05:46 WBC 5.0 RBC 3.50 L Hgb 11.1 L D Hct 31.9 L MCV 91.2 MCH 31.6 MCHC 34.7 RDW 12.4 Plt Count 143 L MPV 8.6 Neut % (Auto) 60.8 Lymph % (Auto) 24.0 [place] % (Auto) 11.1 H Eos % (Auto) 3.4 Baso % (Auto) 0.7 Neut # (Auto) 3.0 Lymph # (Auto) 1.2 [place] # (Auto) 0.6 Eos # (Auto) 0.2 Baso # (Auto) 0.0 WBC Differential . Differential Comment Auto diff final APTT 45.4 H D Sodium 143 Potassium 3.8 Chloride 110 H Carbon Dioxide 25.1 Anion Gap 8 BUN 13 Creatinine 1.03 Estimated GFR 72 L Random Glucose 95 Calcium 7.5 L Medications: Active Medications Generic Name Dose Route Start Last Admin Trade Name Freq PRN Reason Stop Dose Admin Hydrocodone Bitart/Acetaminophen 1 tab 03/24/18 16:53 03/27/18 03:57 [place] 5/325 PO 1 tab Q4H PRN Administration PAIN SCALE 1 TO 5 Apixaban 10 mg 03/27/18 21:00 03/27/18 20:55 Eliquis PO 04/03/18 20:59 10 mg BID ABBIE Administration Chlorhexidine Gluconate 3 pack 03/25/18 04:00 03/27/18 04:53 Chlorhexidine 2% Cloth TOPICAL 03/30/18 03:59 3 pack DAILY@0400 ABBIE Administration Famotidine 20 mg 03/24/18 21:00 03/27/18 20:57 Pepcid Pf Inj IV.PUSH Not Given Q12HR [facility] Sodium Chloride 1,000 mls @ 30 mls/hr 03/24/18 22:45 03/26/18 23:34 Ns Inj IV.SIG 30 mls/hr .Q24H [facility]E Administration Sodium Chloride 1,000 mls @ 0 mls/hr 03/26/18 10:15 03/26/18 11:42 Ns Inj IV.SIG Infused .Q0M [facility] Infusion As Directed Sodium Chloride 1,000 mls @ 100 mls/hr 03/26/18 11:00 03/27/18 17:32 Ns Inj IV.CONT 100 mls/hr .Q10H [facility] Administration Senna/Docusate Sodium 1 tab 03/24/18 21:00 03/27/18 20:58 Susan-Colace PO Not Given BID [facility] Sodium Chloride 2 ml 03/24/18 21:00 03/27/18 20:56 Ns Flush IV.FLUSH 2 ml BID ABBIE Administration Objective Remarks: GENERAL: Well-nourished, well-developed patient. SKIN: Warm and dry. HEAD: Normocephalic. EYES: No scleral icterus. No injection or drainage. CARDIOVASCULAR: Regular rate and rhythm without murmurs. RESPIRATORY: No accessory muscle use. GASTROINTESTINAL: Abdomen soft, non-tender, nondistended. EXTREMITIES: No cyanosis, or edema. MUSCULOSKELETAL: Adequate muscle tone. NEUROLOGICAL: No obvious focal deficit. Awake, alert, and oriented x3. PSYCHIATRIC: Appropriate mood and affect; insight and judgment normal. Assessment/Plan - Plan Mr. Waddell is a pleasant 67-year-old gentleman currently hospitalized for a massive PE and right deep venous thrombosis extending across the knee to mid thigh. Plan: 1. Massive PE, status post catheter directed TPA and IR on 03/25/2018. Continues on heparin drip. Will transition tonight to apixaban. 2. Right DVT, continues on heparin drip. Continue to monitor for bleeding. 3. Right forearm tightness imrpoved. Patient seen at approximately 7 pm on 03/27/2018.
[2018-03-28] MEDS: Sod Chloride 0.9% Inj 1,000 ML IV.SIG SCH (04:11)
[2018-03-28] MEDS: Sod Chloride 0.9% Inj 1,000 ML IV.CONT SCH (04:11)
[2018-03-28 06:16] LABS: Hematocrit 25.2 % (39.0-51.0); Hemoglobin 8.8 gm/dL (13.0-17.0); Mean Corpuscular Hemoglobin 31.7 pg (27.0-34.0); Mean Corpuscular Volume 90.6 fL (80.0-100.0); Mean Platelet Volume 8.1 fL (7.0-11.0); Platelet Count 138 th/mm3 (150-450); Red Blood Count 2.79 mil/mm3 (4.50-5.90); Red Cell Distribution Width 12.4 % (11.6-17.2); White Blood Count 3.9 th/mm3 (4.0-11.0)
[2018-03-28] MEDS: Chlorhexidine Gluconate 2% 1 Pack (2 Cloths) TOPICAL SCH (06:34)
[2018-03-28] MEDS: Senna/Docusate Sodium 8.6/50 MG Tablet PO SCH (08:50)
[2018-03-28] MEDS: Famotidine PF Inj 20 MG/2 ML Vial IV.PUSH SCH (08:50)
--- NOTE | 2018-03-28 22:15 | P.DS ---
DS: Providers Date of admission: 03/24/18 16:29 Primary care physician: UNKNOWN Consults: 03/24/18 16:22 Consult to Radiology Stat 03/24/18 17:58 Consult to Hematology Routine Consulting Provider: Kelsey Alfredo Preferred Metal Off Bearer:: Kelsey Alfreod Reason for Consultation: pulmonary embolus with catheter directed TPA by invasive radiology Notified:: Service Spoke with:: Stephenie Date Notified:: 03/24/18 Time Notified:: 18:07 Ordering Provider: NEENA 03/25/18 17:43 Consult to Hospitalist Routine Consulting Provider: Rxoanne Camejo Reason for Consultation: massive PE s/p TPA Notified:: Service Spoke with:: Lisbeth Date Notified:: 03/25/18 Time Notified:: 18:12 Ordering Provider: DANILO Brief History from admission: This is a 67-year-old male that presented to [facility] with complaints of shortness of breath and chest pain on inspiration. The patient also noted that his right leg have been swollen and had been achy in the recent past. The patient stated that he had been traveling and had taken a flight on March 08 from [place] to [place] and he started having pain in his right leg . On March 21, the patient then stated that he drove from [place] to [place] for approximately 8 hours. Day he woke up and has shortness of breath and continued pain in his right. CT angios was performed and it revealed a large embolus in the left pulmonary vein and small emboli in the right a stat venous Doppler ultrasound showed a DVT extending across the knee to the mid thigh in the right leg. She is past medical history is significant for hypertension ,diabetes, and hepatitis C. The patient also has a hearing deficit. Emergency physician Dr. Montanez contacted Dr. Ramos Invasive Radiology who reviewed the case and discussed the possibility of doing catheter directed TPA. The patient was placed on heparin 1800 units/hour. Patient was noted to have a slight elevation in troponin at 0.28. Stat ECHO was obtained and pending. Critical Care medicine was then consulted. Upon my arrival , the patient was hemodynamically stable on 2 L/min nasal cannula O2 saturation 99%. The patient denied any chest pain and had a normal blood pressure. Stat echo was obtained and is still pending. Review of exclusion criteria was discussed with the patient, of which he denied. The patient met inclusion criteria for TPA. I discussed with the patient options of thrombolysis to include catheter directed by invasive radiology, IV infusion of TPA as well as continued heparin infusion. Discussion with Dr. Montanez and patient decision made to undergo catheter directed thrombolysis. All questions were answered. Risks and benefits for catheter directed TPA thrombolysis to be discussed per Dr. Ramos with patient and family. DS: Summary Mr. Waddell is a pleasant 67 year old male with a history of prostate cancer and remote history of untreated DVT who presented to the ED on 03/24/2018 due to acute onset of chest discomfort, severe dyspnea. He recently drove from [place] for the race. Upon evaluation, a large left sided PE was noted as well as extensive DVT of the right lower ext. Patient underwent emergent catheter directed TPA administration and was observed in the ICU where he remained on heparin drip. Critical care team as well as hematology service were consulted. Large left sided occlusive Pulmonary embolism Smaller right sided pulmonary embolism Extensive right sided lower ext DVT -s/p Catheter directed TPA by IR. -Currently on room air. Patient was on heparin drip, we switched him to Apixaban on 03/27/2018 PM. -Hematology is following. Discussed with Heme/onc on 03/27/2018. -Patient remained stable on Apixaban on 03/28/2018. Left arm swelling -likely related to IV catheter that was there before. No DVT on US. -Able to move all fingers. -No evidence of compartment syndrome, cellulitis. Overall improving. History of Prostate cancer -Patient is advised to follow up with PCP. Last PSA was apparently 6. Full code. Apixaban. We evaluated patient multiple times during the day of discharge. Patient remained hemodynamically stable on room air. He would like to go home. We subsequently discharged him home on Apixaban 10mg BID X 6 more days and then 5mg BID. He is advised to avoid all NSAIDs. Time Spent with Patient Total time spent providing and/or coordinating discharge services: Less than 30 minutes Quality: VTE Deep Vein Thrombosis/Pulmonary Embolism Present on Admission: Yes Exam Narrative Exam Narrative: GENERAL: Alert, oriented x 3, NAD. SKIN: Warm and dry. HEAD: Normocephalic. EYES: No scleral icterus. No injection or drainage. NECK: Supple, trachea midline. No JVD or lymphadenopathy. CARDIOVASCULAR: Regular rate and rhythm without murmurs, gallops, or rubs. RESPIRATORY: Breath sounds equal bilaterally. No accessory muscle use. GASTROINTESTINAL: Abdomen soft, non-tender, nondistended. MUSCULOSKELETAL: No cyanosis. Right lower ext edema noted. Right upper ext swelling noted, improving. Able to move all fingers. BACK: Nontender without obvious deformity. No CVA tenderness. Results Labs on day of discharge: Labs from last 24 hours 03/28/18 05:52 WBC 3.9 L RBC 2.79 L Hgb 8.8 L D Hct 25.2 L MCV 90.6 MCH 31.7 MCHC 35.0 RDW 12.4 Plt Count 138 L MPV 8.1 Impressions ITS Impressions Chest CTA 03/24/18 13:24 CONCLUSION: 1. Large embolus occluding left main pulmonary vein. Findings were discussed with Dr. Edgar today's date. Chest X-Ray 03/24/18 13:24 CONCLUSION: Mild compensated cardiomegaly without infiltrate or failure. Infusion Thrombolysis 03/24/18 16:22 CONCLUSION: 1. Extensive embolus in the left pulmonary artery. Based on the patient's CTA, minimal emboli identified in small branch vessels of the right pulmonary artery. 2. Because of the asymmetry of the clot burden, an infusion catheter was placed across the large clot in the left pulmonary artery and TPA infusion instituted at 2 mg an hour. 3. Patient will be monitored in the ICU overnight. Miscellaneous Special Procedure 03/25/18 00:00 CONCLUSION: 1. Almost complete resolution of the previously seen extensive left pulmonary embolus. No flow restriction. 2. Right IJ access was closed with a 4-0 Vicryl subcuticular stitch and thrombin to hemostasis Forearm CT 03/26/18 00:00 CONCLUSION: 1. No discrete abscess seen on this limited unenhanced study. 2. Mild stranding of the subcutaneous fat throughout the forearm which would suggest either edema or cellulitis. 3. Compartment syndrome is a clinical diagnosis and cannot be made from a CT scan. Venous Doppler Study 03/26/18 06:39 CONCLUSION: 1. Negative for deep venous thrombosis Discharge Plan Discharge Disposition Patient Disposition: 01 Discharge Home Discharge Condition Condition: Good Discharge Order Discharge Orders: Discharge Order (Routine); Ordered 03/28/18 Ordered By: Brianda Santana Discharge Details Anticipated Discharge Date: 03/28/18 Physicians Team Primary Care Provider: UNKNOWN, Attending Provider: Brianda Santana Other Providers: Kelsey Alfredo Rxs /Orders / Referrals /Forms Prescriptions: New apixaban 5 mg tablet 5 mg PO Q12H Qty: 60 RF: 11 Discontinued diclofenac sodium 100 mg Tablet Extended Release 24 Hr 100 mg PO DAILY RF: 0 Referrals: UNKNOWN, [Primary Care Provider] - See Instructions (PATIENT DOES NOT HAVE PCP SO I WAS UNABLE TO MAKE A FOLLOW UP APT.) Discharge Instructions Patient Printed Instructions: Chest Pain (ED), Pulmonary Embolism (GEN) Status ED Status: Left Department Discharge Information Discharge Date/Time: 03/28/18 15:30
== END 2018-03-28 15:30 | disposition home or self-care (01) | DRG 299 ==
LOC: NEPC 10:16 → NEDA 16:29 → N03 18:44
PROVIDERS: ADMIT Hospitalist; ATTEND Hospitalist
CPT/HCPCS: 36012; 36014; 37212; 37214; 71010; 71045; 71275; 73200; 75743; 76937; 80048; 80053; 83520; 83605; 83735; 83880; 84100; 84484; 85025; 85027; 85384; 85610; 85730; 86850; 86900; 86901; 87641; 90774; 90784; 93005; 93306; 93971; 96374; 97162; 99145; 99152; 99153; 99291; A4646; C1751; C1757; C1769; C1887; C1893; C1894; C8952; J1644; J2250; J2997; J3010; J7030; J7040; Q9949; Q9967